=== PATIENT | male | born 1975 | race Caucasian/White ===

== ENCOUNTER 2019-01-26 15:23 | Observation (INO) | payer MEDICAID, SELFPAY ==
[2019-01-26 15:24] VITALS: BP 161/114; PULSE 104; RESP 20; TEMP 36.6; O2SAT 97; BMI 38.2
--- NOTE | 2019-01-26 15:26 | HMH.EDGENADL ---
ED Disposition Clinical Impression: Unstable angina Headache Qualifiers: Headache type: unspecified Headache chronicity pattern: acute headache Intractability: intractable Qualified Code(s): R51 - Headache Disposition: Admitted as Observation Condition on Discharge: Fair - Critical Care Critical Care Time: No Attestation: On , the high probability of a clinically significant, sudden or life threatening deterioration of the following system(s) required my full and direct attention, intervention and personal management. The time I documented below is in addition to time spent performing reported procedures but includes the following listed in this critical care notation. Medical Decision Making - Cesar Inquiry Pt receiving controlled substance: No Vital Signs: 01/26/19 15:24 01/26/19 16:09 01/26/19 16:42 Temperature 98 F Temperature Source Oral Pulse Rate [Right Apical] 104 H 89 97 H Respiratory Rate 20 19 Blood Pressure [Right Arm] 161/114 H 154/95 H 149/104 H Blood Pressure Mean [Right Arm] 129 114 119 Blood Pressure Source [Right Arm] Automatic Cuff Blood Pressure Position [Right Arm] Sitting 02 Sat by Pulse Oximetry 97 95 Oxygen Delivery Method Room Air Room Air - Lab Data Lab Results 01/26/19 15:20: WBC 9.9, RBC 5.59, Hgb 16.2, Hct 48.8, MCV 87.3, MCH 29.0, MCHC 33.2, RDW 13.9, Plt Count 112 L, MPV 10.1, Neut % (Auto) 70.5, Lymph % (Auto) 21.0, [place] % (Auto) 7.1, Eos % (Auto) 1.1, Baso % (Auto) 0.3, Neut # (Auto) 7.0, Lymph # (Auto) 2.1, [place] # (Auto) 0.7, Eos # (Auto) 0.1, Baso # (Auto) 0.0 01/26/19 15:20: Sodium 142, Potassium 3.7, Chloride 107, Carbon Dioxide 27, Anion Gap 11.7, BUN 10, Creatinine 0.81, Estimated Creat Clear 219, Estimated GFR 104, Est GFR ( Amer) 126, Glucose 215 H, Calcium 8.5, Troponin I 0.04 01/26/19 15:20: B-Natriuretic Peptide 310 H 01/26/19 16:38: Urine Color Yellow, Urine Appearance Clear, Urine pH 7.0, Ur Specific [place] 1.015, Urine Protein 1+, Urine Glucose (UA) Trace, Urine Ketones Negative, Urine Blood Negative, Urine Nitrate Negative, Urine Bilirubin Negative, Urine Urobilinogen 0.2, Ur Leukocyte Esterase Negative, Urine RBC None, Urine WBC None, Ur Squamous Epith Cells 3-5, Urine Bacteria Trace Result diagrams: 01/26/19 15:20 01/26/19 15:20 Orders (Tests/Meds): ED MEDICATIONS Discontinued Medications Generic Name Dose Route Start Last Admin Trade Name Raymundoq PRN Reason Stop Dose Admin Metoprolol Tartrate 50 mg 01/26/19 16:03 01/26/19 16:08 Lopressor 50mg Tablet PO 01/26/19 16:04 50 mg ONCE ONE Administration Morphine Sulfate 4 mg 01/26/19 16:48 01/26/19 16:53 Morphine 4mg/Ml Syringe IV 01/26/19 16:49 4 mg ONCE ONE Administration Nitroglycerin 1 gm 01/26/19 16:03 01/26/19 16:08 Nitroglycerin 1 Inch Oint Udp TD 01/26/19 16:04 1 gm ONCE ONE Administration Ondansetron HCl 4 mg 01/26/19 16:48 01/26/19 16:53 Zofran 4mg/2ml Vial IV 01/26/19 16:49 4 mg ONCE ONE Administration ORDERS Category Date Time Status Troponin I Q3H Lab 01/26/19 18:30 Ordered Troponin I Q3H Lab 01/26/19 21:30 Ordered ECG Request by /Minor Stat Y 01/26/19 15:28 Ordered - Radiology Data #1 Image(s): Chest Image Reviewed: Yes I reviewed the patient's radiology image Mild CHF, no significant change from 2017. - CT Data CT Scan: Head Time Received: 17:[address] Reviewed: Yes: I have viewed the radiologist's interpretation Findings Narrative: No acute intracranial process - ECG Data Tracing #1 EKG interpreted by Albino Hdez MD: Rhythm: sinus tachycardia Rate: 106 [place]: normal Ectopy: none Conduction: normal ST Segment Changes: none T Wave Changes: Nonspecific Q Waves: none No evidence of acute ischemia or injury Baseline artifact and wander present, but I consider the EKG adequate for accurate interpretation. - Physician Consults Physician Consulted: Vane Time: 16:00 Lisa
--- NOTE | 2019-01-26 15:32 | XR_ITS ---
XR chest 2V HISTORY: ITS.REASON: CHEST PAIN ORDERING PHYSICIAN: Albino Hdez MD PATIENT AGE: 43 years COMPARISON: 04/26/2017 FINDINGS: There is normal heart size. Pulmonary vessels are however somewhat prominent. There is diffuse prominence of the interstitium consistent with interstitial edema. In addition there is increased density in the right lung base posteriorly consistent with an area of pneumonia or atelectasis. No acute bony findings are evident. IMPRESSION: 1. Normal heart size with pulmonary venous congestion and interstitial edema which may be seen with acute congestive heart failure. 2. Right lower lobe atelectasis or infiltrate
--- NOTE | 2019-01-26 15:39 | PC.NURSE ---
Pt to rad
[2019-01-26 15:40] LABS: Basophils % 0.3 % (0.1-2.0); Eosinophils # 0.1 K/mm3 (0.0-0.4); Eosinophils % 1.1 % (0.1-12.0); Hematocrit 48.8 % (42.0-52.0); Hemoglobin 16.2 g/dL (14.1-18.0); Lymphocytes # 2.1 K/mm3 (0.7-4.5); Mean Corpuscular HGB Conc 33.2 g/dL (31.8-35.4); Mean Corpuscular Volume 87.3 fl (80-94); Mean Platelet Volume 10.1 fl (7.4-10.4); Monocytes # 0.7 K/mm3 (0.1-1.0); Monocytes % 7.1 % (1.7-9.3); Neutrophils % 70.5 % (37.0-80.0); Platelet Count 112 K/mm3 (142-424); Red Blood Count 5.59 M/mm3 (4.60-6.20); Red Cell Distribution Width 13.9 % (11.5-17.5); White Blood Count 9.9 K/mm3 (4.8-10.8)
[2019-01-26 15:54] LABS: Anion Gap 11.7 mEq/L (5-15); Blood Urea Nitrogen 10 mg/dL (7-18); Calcium 8.5 mg/dL (8.5-10.1); Carbon Dioxide 27 mmol/L (21.0-32.0); Chloride 107 mmol/L (98-107); Creatinine Clearance Estimated 219 mL/min (50-200); Creatinine,Serum 0.81 mg/dL (0.70-1.30); Estimated Glomerular Filt Rate 104 ml/min (>60); GFR (African American) 126 ML/MIN (>60); Glucose 215 mg/dL (74-106); Potassium 3.7 mmoL/L (3.5-5.1); Sodium 142 mmol/L (136-145); Troponin I 0.04 ng/ml (0.00-0.06)
--- NOTE | 2019-01-26 15:59 | PC.NURSE ---
ON PHONE WITH DR. ALVAREZ
[2019-01-26 16:09] VITALS: BP 154/95; PULSE 89
--- NOTE | 2019-01-26 16:40 | PC.NURSE ---
Pt up to bathroom, stated had headache from ntg paste, reported it to pt nurse
[2019-01-26 16:42] VITALS: BP 149/104; PULSE 97; RESP 19; O2SAT 95
[2019-01-26 16:43] LABS: Microscopic, Urine URINE MICROSCOPIC (MICROSCOPIC)
--- NOTE | 2019-01-26 16:47 | CT_ITS ---
CT head/brain wo con HISTORY: ITS.REASON: headache ORDERING PHYSICIAN: Albino Hdez MD PATIENT AGE: 43 years COMPARISON: 12/27/2008 TECHNIQUE: Axial images obtained without contrast. Brain and bone windows reviewed. All CT scans at the facility use one or more dose reduction, viz: automated exposure control, ma/kV adjustment per patient size (including targeted exams where dose is matched to indication, i.e. head), or iterative reconstruction technique. FINDINGS: There is mild prominence of the adenoids. No midline shift, mass effect, intracranial hemorrhage or hydrocephalus is evident. There is prominence of the adenoids. There is bilateral opacification of the mastoid air cells. Adnexa phytic soft tissue density projects off the anterior aspect of the scalp on the right. No acute calvarial abnormalities. IMPRESSION: 1. No acute intracranial findings. 2. Bilateral mastoid sinus opacification with prominent adenoids
[2019-01-26 16:52] LABS: Appearance,Urine CLEAR (Clear); Bilirubin,Urine Negative (Negative); Blood, Urine Negative (Negative); Color,Urine YELLOW (Yellow); Glucose,Urine (UA) TRACE (Negative); Ketones,Urine Negative (Negative); Leukocyte Esterase,Urine Negative (Negative); Nitrate,Urine Negative (Negative); Protein,Urine 1+ (Negative); Specific Gravity, Urine 1.015 (1.005-1.030); Urobilinogen,Urine 0.2 EU/dl (0.2)
--- NOTE | 2019-01-26 16:54 | PC.NURSE ---
Paged control electrician for service who is Avelino but Dr. Denise is covering for Dr. You. Per Film Washer she will page Dr. Denise again due to extended time of inital page.
[2019-01-26 16:59] LABS: Bacteria,Urine Trace /lpf
--- NOTE | 2019-01-26 17:06 | PC.NURSE ---
pt return from radiology
--- NOTE | 2019-01-26 17:15 | PC.NURSE ---
johnny speaking with pineda at this time
--- NOTE | 2019-01-26 17:52 | PC.NURSE ---
report given heather maher rn
[2019-01-26 17:58] VITALS: BP 138/92; PULSE 82; RESP 18; TEMP 36.6; O2SAT 93
--- NOTE | 2019-01-26 18:10 | PC.NURSE ---
Pt arrived to floor at this time.
[2019-01-26 18:14] VITALS: BMI 41.5
[2019-01-26 18:15] VITALS: BP 142/93; PULSE 87; RESP 22; TEMP 36.8; O2SAT 94
[2019-01-26 18:52] LABS: Troponin I 0.03 ng/ml (0.00-0.06)
--- NOTE | 2019-01-26 19:08 | PC.NURSE ---
PATIENT SIGNED CONSENT TO LEAVE THE FLOOR, PATIENT LEFT FLOOR, RN CONTACTED MD AT THAT TIME AND MD STATED THAT HE WOULD RATHER HAVE HIM STAY ON THE FLOOR BECAUSE THE TELEMETRY THAT HE IS ON. WHEN PATIENT CAME BACK TO THE FLOOR RN EDUCATED TO THE PATIENT THAT HE CAN NO LONGER LEAVE THE FLOOR, AND THAT WE CAN OFFER HIM A NICOTINE PATCH IF NEEDED, PATIENT VERBALIZED UNDERSTANDING AT THIS TIME, WILL CONTINUE TO MONITOR.
[2019-01-26 20:00] VITALS: BP 141/91; PULSE 90; RESP 16; TEMP 36.8; O2SAT 96
[2019-01-26 22:05] LABS: Troponin I 0.04 ng/ml (0.00-0.06)
[2019-01-27] VITALS (13 sets, daily range): BP systolic 110–137; BP diastolic 73–88; PULSE 65–90; RESP 17–20; TEMP 36.5–37; O2SAT 91–96; BMI 41.8
--- NOTE | 2019-01-27 01:07 | PC.NURSE ---
A&OX3. DENIES CP OR SOA BUT DOES REPORT A SEVERE AMARAL. PT RECEIVED SCHEDULED AND PRN PAIN MEDICATION PER MAR, ON REASSESSMENT PT STATED MY PAIN IS A 3/10 NOW. IT'S SO MUCH BETTER. ESTABLISHED PAIN GOAL IS <6/10 ON 0-10 INFECTIOUS WASTE TECHNICIAN. NICOTINE PATCH WAS APPLIED AND REEDUCATED PT'S NEED TO STAY ON UNIT R/T MD INSTRUCTIONS AND SAFETY. PT AMBULATED IN AVILES X1 THIS SHIFT INDEPENDENTLY AND TOLERATED WELL. LUNG SOUNDS CLEAR PER AUSCULTATION. TOLERATED RA WELL. NSR/SINUS TACH NOTED PER PRINTER SLOTTER HELPER. PULSES +2, CAP REFILL <3 SEC. TRACE EDEMA NOTED TO BLE. BOWEL SOUNDS AUSCULTATED IN ALL QUADS, ABDOMEN NONDISTENDED, SOFT AND NONTENDER PER PALPATION. VSS. WILL CONTINUE TO MONITOR.
[2019-01-27 02:05] LABS: POC Glucose,Bedside 224 (70-110)
--- NOTE | 2019-01-27 04:39 | PC.NURSE ---
No acute changes noted. Pt c/o an headache returning. Tylenol 650 mg administered. Pt has slept well since. No additional complaints. Pt has slept in chair this shift. Declines to sleep in bed. Significant other with pt. Call light within reach. Pt is NPO for cardiac consult this am. No other concerns at this time. Will continue to monitor.
[2019-01-27 06:52] LABS: POC Glucose,Bedside 166 (70-110)
--- NOTE | 2019-01-27 07:28 | P.CONPHA_ITS ---
[facility] Pharmacy VTE Monitoring - Patient Demographics Admission date: 01/26/19 Report Date: 01/27/19 Time: 07:28 Allergies/Adverse Reactions: Patient Allergies No Known Drug Intolerances Allergy (Unknown, Verified 01/26/19 23:06) NA No Known Drug Allergies Allergy (Verified 01/26/19 17:51) Height: 1.85 m Weight: 142.938 kg Patient Problems: Current Active Problems (Updated 01/26/19 @ 17:31 by Albino Hdez MD) Unstable angina (Acute) Headache (Acute) - VTE Risk Labs: VTE Related Lab Results Hgb 16.2 g/dL (14.1-18.0) 01/26/19 15:20 Hct 48.8 % (42.0-52.0) 01/26/19 15:20 Plt Count 112 K/mm3 (142-424) L 01/26/19 15:20 BUN 10 mg/dL (7-18) 01/26/19 15:20 Creatinine 0.81 mg/dL (0.70-1.30) 01/26/19 15:20 Estimated Creat Clear 219 mL/min (50-200) 01/26/19 15:20 Was VTE Risk Assessment Performed: Yes VTE Score: 3 VTE Risk Level: Low Risk Clinical Trial Participant: No - Prophylaxis VTE Prophylaxis Ordered?: Yes Types of VTE Prophylaxis: TEDS Knee High
--- NOTE | 2019-01-27 07:37 | HMH.HP ---
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 He also was apparently very hypertensive. He was admitted overnight and enzymes were negative but family requested evaluation by cardiology, and apparently there was some disagreement between the family and the attending physician and the patient and family left AMA and came to the [facility] emergency department yesterday evening where he was admitted for further evaluation given his ongoing chest pain, symptom complex history and significant risk factors. Overnight he feels fine with no chest pain except for a mild headache. [facility] History I have reviewed the patient's past medical history: Yes Medical History: Reports:: Diabetes Mellitus Type 2, Hyperlipidemia, Hypertension, Myocardial Infarction Denies:: Diabetes Mellitus Type 1 *Have you ever received a pneumonia vaccine?: No *Have you received a flu vaccine this season?: Yes Other Surgeries: Yes: Cardiac Catheterization, Coronary Stent - *Social History Educational Level: Completed High School Smoking Status: Current every day smoker Tobacco Type: cigarettes # Packs/Day (cigarettes): 2 Alcohol Intake: never Substance Use Type: sedatives *Occupational Status:: employed *Travel in the last 8 weeks: None - Psychiatric History Expresses thoughts of harming self/others: None Suicide Plan Description: No Plan Family Hx:: Coronary Artery Disease, Diabetes, Heart Attack, Hyperlipidemia, Hypertension, Kidney Disease Review of Systems - Review of Systems Review of systems:: pertinent systems reviewed and negative unless documented below - Constitutional Denies anorexia, Denies body ache(s) - Eyes Denies blind spots, Denies blurry vision - ENT Denies abnormal hearing - *Cardiovascular Reports chest pain, Reports chest pain at rest, Reports shortness of breath - *Respiratory Denies change in phlegm color, Denies chest congestion - *Gastrointestinal Denies abdominal pain - *Genitourinary Denies difficulty urinating - *Musculoskeletal Denies abnormal walking, Denies joint pain Meds Home Medications Medication Instructions Recorded Confirmed Type Amitriptyline HCl [Elavil 50mg 50 mg PO HS 01/26/19 01/26/19 History tablet] Atorvastatin Calcium [Atorvastatin 40 mg PO HS 01/26/19 01/26/19 History 40mg Tab] Carvedilol [Carvedilol 12.5mg Tab] 12.5 mg PO BID 01/26/19 01/26/19 History Ibuprofen [Ibuprofen 800mg 800 mg PO TID 01/26/19 01/26/19 History Tablet] Insulin Glargine,Hum.rec.anlog 40 unit SQ HS 01/26/19 01/26/19 History [Basaglar Kwikpen U-100] Insulin Lispro [Humalog Kwikpen 60 unit SQ ACHS 01/26/19 01/26/19 History U-100] Lisinopril [Lisinopril 40mg Tablet] 40 mg PO DAILY 01/26/19 01/26/19 History Loratadine [Claritin 10mg Tablet] 10 mg PO DAILY 01/26/19 01/26/19 History Omeprazole [Omeprazole 40mg 40 mg PO DAILY 01/26/19 01/26/19 History Capsule] Potassium Chloride [K-Tab ER 20 20 meq PO BID 01/26/19 01/26/19 History mEq] Prasugrel HCl [Effient 10mg tablet] 10 mg PO DAILY 01/26/19 01/26/19 History Triamterene/Hydrochlorothiazid 2 each PO DAILY 01/26/19 01/26/19 History [Maxzide 37.5 mg-25 mg Tablet] Allergies Allergy/AdvReac Type Severity Reaction Status Date / Time No Known Drug Intolerances Allergy Unknown NA Verified 01/26/19 23:06 No Known Drug Allergies Allergy Verified 01/26/19 17:51 Exam Vital signs and Labs for Last 24 Hours: Temp Pulse Resp BP Pulse Ox 97.9 F 83 18 121/75 92 L 01/27/19 04:00 01/27/19 04:00 01/27/19 04:00 01/27/19 04:00 01/27/19 04:00 Laboratory Results
--- NOTE | 2019-01-27 07:40 | P.HP_ITS ---
*Admission Date: 01/26/19 *Chief complaint: Chest pain/headache *History of present illness: 43-year-old white male, with history of coronary disease, status post stenting a couple of years ago who has been lost to cardiology [id number] been attending a nurse practitioner clinic in [place]-who came to the [facility] early Friday morning, January 25 with a chief complaint of chest pain and headache. He also was apparently very hypertensive. He was admitted overnight and enzymes were negative but family requested evaluation by cardiology, and apparently there was some disagreement between the family and the attending physician and the patient and family left AMA and came to the [facility] emergency department yesterday evening where he was admitted for further evaluation given his ongoing chest pain, symptom complex history and significant risk factors. Overnight he feels fine with no chest pain except for a mild headache. [facility] History I have reviewed the patient's past medical history: Yes Medical History: Reports:: Diabetes Mellitus Type 2, Hyperlipidemia, Hypertension, Myocardial Infarction Denies:: Diabetes Mellitus Type 1 *Have you ever received a pneumonia vaccine?: No *Have you received a flu vaccine this season?: Yes Other Surgeries: Yes: Cardiac Catheterization, Coronary Stent - *Social History Educational Level: Completed High School Smoking Status: Current every day smoker Tobacco Type: cigarettes # Packs/Day (cigarettes): 2 Alcohol Intake: never Substance Use Type: sedatives *Occupational Status:: employed *Travel in the last 8 weeks: None - Psychiatric History Expresses thoughts of harming self/others: None Suicide Plan Description: No Plan Family Hx:: Coronary Artery Disease, Diabetes, Heart Attack, Hyperlipidemia, Hypertension, Kidney Disease Review of Systems - Review of Systems Review of systems:: pertinent systems reviewed and negative unless documented below - Constitutional Denies anorexia, Denies body ache(s) - Eyes Denies blind spots, Denies blurry vision - ENT Denies abnormal hearing - *Cardiovascular Reports chest pain, Reports chest pain at rest, Reports shortness of breath - *Respiratory Denies change in phlegm color, Denies chest congestion - *Gastrointestinal Denies abdominal pain - *Genitourinary Denies difficulty urinating - *Musculoskeletal Denies abnormal walking, Denies joint pain Meds Home Medications Medication Instructions Recorded Confirmed Type Amitriptyline HCl [Elavil 50mg 50 mg PO HS 01/26/19 01/26/19 History tablet] Atorvastatin Calcium [Atorvastatin 40 mg PO HS 01/26/19 01/26/19 History 40mg Tab] Carvedilol [Carvedilol 12.5mg Tab] 12.5 mg PO BID 01/26/19 01/26/19 History Ibuprofen [Ibuprofen 800mg 800 mg PO TID 01/26/19 01/26/19 History Tablet] Insulin Glargine,Hum.rec.anlog 40 unit SQ HS 01/26/19 01/26/19 History [Basaglar Kwikpen U-100] Insulin Lispro [Humalog Kwikpen 60 unit SQ ACHS 01/26/19 01/26/19 History U-100] Lisinopril [Lisinopril 40mg Tablet] 40 mg PO DAILY 01/26/19 01/26/19 History Loratadine [Claritin 10mg Tablet] 10 mg PO DAILY 01/26/19 01/26/19 History Omeprazole [Omeprazole 40mg 40 mg PO DAILY 01/26/19 01/26/19 History Capsule] Potassium Chloride [K-Tab ER 20 20 meq PO BID 01/26/19 01/26/19 History mEq] Prasugrel HCl [Effient 10mg tablet] 10 mg PO DAILY 01/26/19 01/26/19 Histor
--- NOTE | 2019-01-27 09:30 | CA_ITS ---
PROCEDURE: 2-D M-mode and color Doppler study INDICATIONS FOR THE TEST: Chest pain X COPD Heart Murmur Tobacco SmokingX Palpitations Fatigue Syncope Edema HypertensionXDiabetes MellitusX Rheumatic Fever SOBXDOE ObesityXHyperlipidemia Family History HD Additional History CAD,STENTS PATIENT INFORMATION HEIGHT: 73 WEIGHT:315 GENDER: Male B/P:119/73 2-D/M-MODE INTERPRETATION: 2-D MEASUREMENTS OBSERVED VALUES IN CMS Right Ventricular Dimension (RVDd) 2.7 Interventricular Septum (Thickness)(IVsd) 1.2 Left Ventricular Internal Dimensions(LVIDd) 5.6 Left Ventricular Posterior Wall (Thickness)(LVPWd) 1.1 Aortic Root 3.8 Aortic Cusp Separation 1.8 Left Atrial Dimensions (LAD) 4.0 2D 1. Left atrium is mildly enlarged, left ventricle is normal size, mild concentric left ventricular hypertrophy, visually estimated ejection fraction of 55% with no obvious regional wall motion abnormality, endocardial surfaces are poorly visualized. 2. The right atrium and right ventricle are normal size and contractility. 3. The aortic valve is minimally thickened and fibrosed. 4. The mitral and tricuspid valvular grossly normal. 5. The pulmonic valve is poorly present. 6. No significant pericardial effusion noted. DOPPLER INTERROGATION: Doppler interrogation of the aortic, mitral and tricuspid valvular presence of mild mitral and tricuspid regurgitation, tricuspid regurgitation jet velocity is inadequate for calculation of the right ventricular systolic pressure, diastolic parameters are within normal range. CONCLUSION: 1. Technically difficult study because of the patient's factor and poor acoustic windows 2. Mildly enlarged left atrium, normal left ventricular size, mild concentric left ventricular hypertrophy, visually estimated ejection fraction 55% with no regional wall motion abnormality, diastolic parameters are within normal range. 3. Mild mitral and tricuspid regurgitation 4. No significant pericardial effusion noted.
--- NOTE | 2019-01-27 09:30 | HMH.CNCARD ---
History of Present Illness Consult date: 01/27/19 Requesting physician: Philip Denise Consult reason: chest pain Chief complaint: Chest pain Additional Medical History:: 1. Coronary artery disease 2. Hypertension 3. Hyperlipidemia 4. Diabetes mellitus 5. Tobacco user 6. History of stented coronary arteries History of present illness: This is a 43-year-old white gentleman who has been admitted for chest pain and angina. The patient states that he started having chest pain on Friday. He describes this as a pressure, heavy sensation in the center of his chest. He states it radiates up the left side of his neck and down his left arm. He states that the chest pain and pressure is associated with shortness of breath, clamminess and diaphoresis. He rates the pain a 7.5 out of 10 in intensity. He states that this occurs with rest and exertion. It is worse with exertion and nothing really helped to improve his symptoms at home. He states that his blood pressure also started to elevate when he started getting chest pain. His blood pressure was as high as 230/100 at home. The patient initially went to [facility]. He states that at [facility] they were not doing anything to help improve his pain and they refused to transfer him here to [facility] to see his slasher tender helper so he decided to leave [facility]. He presented here to [facility] on Friday for worsening of his angina. He states that he is continued to have angina off and on throughout the night but after getting Nitropaste he states that his symptoms have improved. He states that his angina is now mild and he is not having any angina symptoms this morning. He does have known coronary artery disease with stenting in 2017. The patient did have persistent disease at that time. He does continue to smoke 1 pack/day and he is diabetic. He denies any fevers, chills, nausea, vomiting, diarrhea, PND or orthopnea. [facility] History I have reviewed the patient's past medical history: Yes Medical History: Reports:: Coronary Artery Disease, Diabetes Mellitus Type 2, Hyperlipidemia, Hypertension, Myocardial Infarction Denies:: Diabetes Mellitus Type 1 *Have you ever received a pneumonia vaccine?: No *Have you received a flu vaccine this season?: Yes Other Surgeries: Yes: Cardiac Catheterization, Coronary Stent - *Social History Educational Level: Completed High School Smoking Status: Current every day smoker Tobacco Type: cigarettes # Packs/Day (cigarettes): 1 Alcohol Intake: never Substance Use Type: sedatives *Occupational Status:: employed *Travel in the last 8 weeks: None - Psychiatric History Expresses thoughts of harming self/others: None Suicide Plan Description: No Plan Family Hx:: Coronary Artery Disease, Diabetes, Heart Attack, Hyperlipidemia, Hypertension, Kidney Disease Meds Home Medications Medication Instructions Recorded Confirmed Type Amitriptyline HCl [Elavil 50mg 50 mg PO HS 01/26/19 01/26/19 History tablet] Atorvastatin Calcium [Atorvastatin 40 mg PO HS 01/26/19 01/26/19 History 40mg Tab] Carvedilol [Carvedilol 12.5mg Tab] 12.5 mg PO BID 01/26/19 01/26/19 History Ibuprofen [Ibuprofen 800mg 800 mg PO TID 01/26/19 01/26/19 History Tablet] Insulin Glargine,Hum.rec.anlog 40 unit SQ HS 01/26/19 01/26/19 History [Basaglar Kwikpen U-100] Insulin Lispro [Humalog Kwikpen 60 unit SQ ACHS 01/26/19 01/26/19 History U-100] Lisinopril [Lisinopril 40mg Tablet] 40 mg PO DAILY 01/26/19 01/26/19 History Loratadine [Claritin 10mg Tablet] 10 mg PO DAILY 01/26/19 01/26/19 History Omeprazole [Omeprazole 40mg 40 mg PO DAILY 01/26/19 01/26/19 History Capsule] Potassium Chloride [K-Tab ER 20 20 meq PO BID 01/26/19 01/26/19 History mEq] Prasugrel HCl [Effient 10mg tablet] 10 mg PO DAILY 01/26/19 01/26/19 History Triamterene/Hydrochlorothiazid 2 each PO DAILY 01/26/19 01/26/19 History [Maxzide 37.5 mg-25
--- NOTE | 2019-01-27 09:33 | P.CONS_ITS ---
History of Present Illness Consult date: 01/27/19 Requesting physician: Philip Denise Consult reason: chest pain Chief complaint: Chest pain Additional Medical History:: 1. Coronary artery disease 2. Hypertension 3. Hyperlipidemia 4. Diabetes mellitus 5. Tobacco user 6. History of stented coronary arteries History of present illness: This is a 43-year-old white gentleman who has been admitted for chest pain and angina. The patient states that he started having chest pain on Friday. He describes this as a pressure, heavy sensation in the center of his chest. He states it radiates up the left side of his neck and down his left arm. He states that the chest pain and pressure is associated with shortness of breath, clamminess and diaphoresis. He rates the pain a 7.5 out of 10 in intensity. He states that this occurs with rest and exertion. It is worse with exertion and nothing really helped to improve his symptoms at home. He states that his blood pressure also started to elevate when he started getting chest pain. His blood pressure was as high as 230/100 at home. The patient initially went to [facility]. He states that at [facility] they were not doing anything to help improve his pain and they refused to transfer him here to [facility] to see his soaping machine back tender so he decided to leave [facility]. He presented here to [facility] on Friday for worsening of his angina. He states that he is continued to have angina off and on throughout the night but after getting Nitropaste he states that his symptoms have improved. He states that his angina is now mild and he is not having any angina symptoms this morning. He does have known coronary artery disease with stenting in 2017. The patient did have persistent disease at that time. He does continue to smoke 1 pack/day and he is diabetic. He denies any fevers, chills, nausea, vomiting, diarrhea, PND or orthopnea. [facility] History I have reviewed the patient's past medical history: Yes Medical History: Reports:: Coronary Artery Disease, Diabetes Mellitus Type 2, Hyperlipidemia, Hypertension, Myocardial Infarction Denies:: Diabetes Mellitus Type 1 *Have you ever received a pneumonia vaccine?: No *Have you received a flu vaccine this season?: Yes Other Surgeries: Yes: Cardiac Catheterization, Coronary Stent - *Social History Educational Level: Completed High School Smoking Status: Current every day smoker Tobacco Type: cigarettes # Packs/Day (cigarettes): 1 Alcohol Intake: never Substance Use Type: sedatives *Occupational Status:: employed *Travel in the last 8 weeks: None - Psychiatric History Expresses thoughts of harming self/others: None Suicide Plan Description: No Plan Family Hx:: Coronary Artery Disease, Diabetes, Heart Attack, Hyperlipidemia, Hypertension, Kidney Disease Meds Home Medications Medication Instructions Recorded Confirmed Type Amitriptyline HCl [Elavil 50mg 50 mg PO HS 01/26/19 01/26/19 History tablet] Atorvastatin Calcium [Atorvastatin 40 mg PO HS 01/26/19 01/26/19 History 40mg Tab] Carvedilol [Carvedilol 12.5mg Tab] 12.5 mg PO BID 01/26/19 01/26/19 History Ibuprofen [Ibuprofen 800mg 800 mg PO TID 01/26/19 01/26/19 History Tablet] Insulin Glargine,Hum.rec.anlog 40 unit SQ HS 01/26/19 01/26/19 History [Basaglar Kwikpen U-100] Insulin Lispro [Humalog Kwikpen 60 unit SQ [facility] 01/26/19 01/26/19 History U-100] Lisinopril [Lisinopril 40mg Tablet] 40 mg PO DAILY 01/26/19 01/26/19 His
--- NOTE | 2019-01-27 09:48 | PC.NURSE ---
Pt out of room and states he is going downstairs to smoke, informed pt that he needs to stay on floor to be monitored by telemetry and nursing staff. Pt left floor when this nurse in another room.
--- NOTE | 2019-01-27 10:47 | HMH.PHAINT ---
COMPLETED HOME MEDICATION RECONCILIATION USING LIST FROM [facility] OFFICE AND INTERVIEWING PATIENT.
--- NOTE | 2019-01-27 11:18 | IR_ITS ---
CARDIAC CATHETERIZATION DATE OF CATHETERIZATION:01/27/2019 11:51 AM PROCEDURES: 1. Left heart catheterization 2. Left ventriculogram 3. Selective coronary angiogram INDICATION FOR TEST: 1. Known coronary artery disease 2. Unstable angina Informed consent was obtained prior to the procedure. COMPLICATIONS: None ESTIMATED BLOOD LOSS: Less than 10 ml. TECHNIQUE: One percent lidocaine was used to anesthetize the right groin. The right femoral artery was accessed via the Seldinger technique. A 4-Faroese sheath was placed in the right femoral artery. The JL-4 and JR-4 catheter was also used to perform left heart catheterization left ventriculogram and selective coronary angiogram. At the end of the procedure the patient was transferred to the post-op holding area in stable condition for arterial sheath removal. ANGIOGRAPHIC RESULTS: 1. The left main artery normal 2. The left anterior descending artery appears to have a stent in the proximal segment which is widely patent with very minimal in-stent restenosis nothing greater than 20%. It transitions nicely into the mid LAD which also has mid vessel 20% stenoses 3. The circumflex artery is a dominant vessel and has a stent in the mid segment which is widely patent free of in-stent restenosis. The terminal obtuse marginal artery has sequential 30% stenoses 4. The right coronary artery is a small nondominant vessel has proximal 30% stenosis mid vessel 70% stenosis and a distal 80-90% stenosis proximal to an area supplying a small amount of mostly right ventricle 5. The LORENZO ventriculogram reveals left ventricular dilatation with ejection fraction of 45% 6. The left ventricular end-diastolic pressure severely elevated at 45 mmHg IMPRESSION: 1. Widely patent stents as described above 2. Severe stenosis and a small nondominant right coronary artery 3. Left ventricular dilatation with reduced ejection fraction and severely elevated LVEDP PLAN: 1. Medical management for coronary disease 2. Patient needs significant diuresis in order to decrease EDP which will subsequently significantly improve angina pectoris 3. Aggressive risk factor modification
--- NOTE | 2019-01-27 14:05 | HMH.DCSUM ---
General - General Admission date:: 01/26/19 Discharge date: 01/27/19 HPI HPI: 43-year-old white male, with history of coronary disease, status post stenting a couple of years ago who has been lost to cardiology [id number] [place] came to the [facility] early Friday morning, January 25 with a chief complaint of chest pain and headache. He also was apparently very hypertensive. He was admitted overnight and enzymes were negative but family requested evaluation by cardiology, and apparently there was some disagreement between the family and the attending physician and the patient and family left AMA and came to the [facility] emergency department yesterday evening where he was admitted for further evaluation given his ongoing chest pain, symptom complex history and significant risk factors. Overnight he feels fine with no chest pain except for a mild headache. Hospital Course Hospital Course: Patient was admitted, blood pressure improved, chest pain resolved with nitroglycerin but patient did have a mild headache. This morning he was taken to catheterization suite and left heart catheterization was performed, and following results were obtained: ANGIOGRAPHIC RESULTS: 1. The left main artery normal 2. The left anterior descending artery appears to have a stent in the proximal segment which is widely patent with very minimal in-stent restenosis nothing greater than 20%. It transitions nicely into the mid LAD which also has mid vessel 20% stenoses 3. The circumflex artery is a dominant vessel and has a stent in the mid segment which is widely patent free of in-stent restenosis. The terminal obtuse marginal artery has sequential 30% stenoses 4. The right coronary artery is a small nondominant vessel has proximal 30% stenosis mid vessel 70% stenosis and a distal 80-90% stenosis proximal to an area supplying a small amount of mostly right ventricle 5. The LORENZO ventriculogram reveals left ventricular dilatation with ejection fraction of 45% 6. The left ventricular end-diastolic pressure severely elevated at 45 mmHg IMPRESSION: 1. Widely patent stents as described above 2. Severe stenosis and a small nondominant right coronary artery 3. Left ventricular dilatation with reduced ejection fraction and severely elevated LVEDP PLAN: 1. Medical management for coronary disease 2. Patient needs significant diuresis in order to decrease EDP which will subsequently significantly improve angina pectoris 3. Aggressive risk factor modification The patient did well after the procedure and I examined him and talked with him and his in detail about the findings as above. Plan will be to discharge patient home, short-term follow-up in our office, I will institute Lasix therapy, also, since he is over 1 year after coronary event we will institute low-dose Xarelto. He will continue statin therapy. Of note he recently acquired a CPAP machine and I encouraged him to begin using this to help with his obesity and hypertension and fluid retention. Also of note, carvedilol as an outpatient did not seem to do good job with his blood pressure. Metoprolol tartrate 50 mg twice daily did a good job in the hospital and we will be changing to this medication. Prescription sent to local pharmacy for the metoprolol, and the newly instituted Lasix and Xarelto. His medication list records that he is on Effient therapy. He has been on this for over a year and this can be discontinued on this and low-dose Xarelto may be started. Objective Vital signs: Temp Pulse Resp BP Pulse Ox 98.0 F 72 20 113/76 94 L 01/27/19 13:35 01/27/19 13:35 01/27/19 13:35 01/27/19 13:35 01/27/19 13:35 Narrative: Please see dictation from this morning. Patient's attempted radial cath site and legs look good after right groin catheterization. Otherwise unchanged exam. Results L
--- NOTE | 2019-01-27 14:08 | P.DS_ITS ---
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 He also was apparently very hypertensive. He was admitted overnight and enzymes were negative but family requested evaluation by cardiology, and apparently there was some disagreement between the family and the attending physician and the patient and family left AMA and came to the [facility] emergency department yesterday evening where he was admitted for further evaluation given his ongoing chest pain, symptom complex history and significant risk factors. Overnight he feels fine with no chest pain except for a mild headache. Hospital Course Hospital Course: Patient was admitted, blood pressure improved, chest pain resolved with nitroglycerin but patient did have a mild headache. This morning he was taken to catheterization suite and left heart catheterization was performed, and following results were obtained: ANGIOGRAPHIC RESULTS: 1. The left main artery normal 2. The left anterior descending artery appears to have a stent in the proximal segment which is widely patent with very minimal in-stent restenosis nothing greater than 20%. It transitions nicely into the mid LAD which also has mid vessel 20% stenoses 3. The circumflex artery is a dominant vessel and has a stent in the mid segment which is widely patent free of in-stent restenosis. The terminal obtuse marginal artery has sequential 30% stenoses 4. The right coronary artery is a small nondominant vessel has proximal 30% stenosis mid vessel 70% stenosis and a distal 80-90% stenosis proximal to an area supplying a small amount of mostly right ventricle 5. The LORENZO ventriculogram reveals left ventricular dilatation with ejection fraction of 45% 6. The left ventricular end-diastolic pressure severely elevated at 45 mmHg IMPRESSION: 1. Widely patent stents as described above 2. Severe stenosis and a small nondominant right coronary artery 3. Left ventricular dilatation with reduced ejection fraction and severely elevated LVEDP PLAN: 1. Medical management for coronary disease 2. Patient needs significant diuresis in order to decrease EDP which will subsequently significantly improve angina pectoris 3. Aggressive risk factor modification The patient did well after the procedure and I examined him and talked with him and his in detail about the findings as above. Plan will be to discharge patient home, short-term follow-up in our office, I will institute Lasix therapy, also, since he is over 1 year after coronary event we will institute low-dose Xarelto. He will continue statin therapy. Of note he recently acquired a CPAP machine and I encouraged him to begin using this to help with his obesity and hypertension and fluid retention. Also of note, carvedilol as an outpatient did not seem to do good job with his blood pressure. Metoprolol tartrate 50 mg twice daily did a good job in the hospital and we will be changing to this medication. Prescription sent to local pharmacy for the metoprolol, and the newly instituted Lasix and Xarelto. His medication list records that he is on Effient therapy. He has been on this for over a year and this can be discontinued on this and low-dose Xarelto may be started. Objective Vital signs:
--- NOTE | 2019-01-27 15:18 | PC.NURSE ---
Dressing to right wrist and right groin site dry and intact, instructed that dressing can be removed in 24 hours. Pt verbalized understanding.
--- NOTE | 2019-01-27 16:17 | HMH.PHAINT ---
DISCHARGE COUNSELING PROVIDED TO PATIENT FOR ALL MEDICATIONS. PATIENT VERBALIZED UNDERSTANDING AND DID NOT HAVE ANY QUESTIONS.
== END 2019-01-27 15:20 | disposition home or self-care (01) ==
LOC: ER 17:30 → 2ND 17:31
PROVIDERS: Internal Medicine; Admitting Provider Internal Medicine Adolescent Medicine; Emergency Provider Emergency Medicine; PCP Nurse Practitioner Family; Visit Provider Internal Medicine Adolescent Medicine
DX: I25.110 Atherosclerotic heart disease of native coronary artery with unstable angina pectoris (principal); Z95.5 Presence of coronary angioplasty implant and graft; I11.9 Hypertensive heart disease without heart failure; E78.5 Hyperlipidemia, unspecified; I25.2 Old myocardial infarction; Z79.899 Other long term (current) drug therapy; Z72.0 Tobacco use; Z68.41 Body mass index [BMI] 40.0-44.9, adult; E66.09 Other obesity due to excess calories
CPT/HCPCS: 36415; 70450; 71046; 80048; 81001; 82962; 83880; 84484; 85025; 93005; 93306; 93458; 96374; 96375; 99152; 99284; C1725; C1769; G0378; J1644; J2405; Q9967

== ENCOUNTER → 2019-03-24 09:00 | Outpatient (CLI) | payer MEDICAID, SELFPAY ==
[2019-03-24 13:53] LABS: Basophils # 0.1 K/mm3 (0-0.2); Eosinophils # 0.2 K/mm3 (0.0-0.4); Lymphocytes # 2.3 K/mm3 (0.7-4.5); Monocytes # 0.6 K/mm3 (0.1-1.0)
[2019-03-24 14:07] LABS: Basophils % 0.6 % (0.1-2.0); Eosinophils % 1.4 % (0.1-12.0); Hematocrit 53.5 % (42.0-52.0); Lymphocytes % 20.9 % (10-50); Mean Corpuscular HGB Conc 34.2 g/dL (31.8-35.4); Mean Corpuscular Hemoglobin 31.2 pg (27.0-31.2); Mean Corpuscular Volume 91.3 fl (80-94); Mean Platelet Volume 11.6 fl (7.4-10.4); Monocytes % 5.2 % (1.7-9.3); Neutrophils # 7.7 K/mm3 (1.8-7.8); Platelet Count 131 K/mm3 (142-424); Red Blood Count 5.86 M/mm3 (4.60-6.20); Red Cell Distribution Width 13.9 % (11.5-17.5); White Blood Count 10.7 K/mm3 (4.8-10.8)
[2019-03-24 14:18] LABS: Hemoglobin A1C 9.6 % (0.0-7.0)
[2019-03-24 14:44] LABS: Alanine Aminotransferase 66 U/L (12-78); Albumin Level 3.9 gm/dL (3.4-5.0); Albumin/Globulin Ratio 1.1 (1.1-1.8); Alkaline Phosphatase 82 U/L (46-116); Anion Gap 15.1 mEq/L (5-15); Aspartate Amino Transferase 30 U/L (15-37); Bilirubin,Total 0.6 mg/dL (0.2-1.0); Blood Urea Nitrogen 16 mg/dL (7-18); Calcium 9.2 mg/dL (8.5-10.1); Carbon Dioxide 27 mmol/L (21.0-32.0); Chloride 94 mmol/L (98-107); Chol/HDL Ratio 8.3 (1-3.5); Cholesterol 217 mg/dL (140-200); Creatinine,Serum 1.16 mg/dL (0.70-1.30); Estimated Glomerular Filt Rate 69 ml/min (>60); GFR (African American) 83 ML/MIN (>60); Globulin 3.6 gm/dl (1.3-3.2); HDL Cholesterol 26 mg/dL (27-67); Hemoglobin 18.3 g/dL (14.1-18.0); Magnesium 1.5 mg/dL (1.4-2.2); Potassium 4.1 mmoL/L (3.5-5.1); Sodium 132 mmol/L (136-145); Total Protein,Serum 7.5 gm/dL (6.4-8.2)
[2019-03-24 14:54] LABS: Triglycerides 848 mg/dL (30-200)
[2019-03-24 14:55] LABS: Glucose 440 mg/dL (74-106)
== END ==
PROVIDERS: PCP Nurse Practitioner Family; Visit Provider Nurse Practitioner Family
DX: E11.49 Type 2 diabetes mellitus with other diabetic neurological complication (principal); J40 Bronchitis, not specified as acute or chronic; R25.2 Cramp and spasm; E78.2 Mixed hyperlipidemia
CPT/HCPCS: 36415; 80053; 80061; 83036; 83735; 85025

== ENCOUNTER 2025-02-16 05:53 | Observation (INO) | payer MEDICAID, SELFPAY ==
--- OUTSIDE RECORDS SUMMARY | 2025-02-12 23:59 | XMS_ITS | Encounter Summary ---
Author Organization [facility] Address [address] [place] [address] Care Team Providers Care Delivery Lead Name Role Phone Zeynep Peraza APRN Primary Care Provider [phone] Encounter Details Date Type Department Care Team (Late st Contact Info) Description 02/15/2025 11:59 PM EDT Anesthesia Event [facility] [address] [place] [address] Christian Bonilla MD [address] [place] [address] Anesthesia Record Procedure Summary Procedure Name Responsible Anesthesiologist Anesthesia Start Time Anesthesia Stop Time COL&EGD Events No events on file. Meds * Agents No agents on file. * Blood No blood administrations on file. Lines, Drains, and Airways No LDAs on file. documented in this encounter Social History Tobacco Use Types Packs/Day Years Used Date Smoking Tobacco: Every Day Passive Smoke Exposure: Current Smokeless Tobacco: Never Alcohol Use Standard Drinks/Week Comments Never 0 (1 standard drink = 0.6 oz pur e alcohol) Humiliation, Afraid, Rape, and Kick questionnair e Answer Date Recorded Within the last year, have y ou been afraid of your partner or ex-partner? No 07/01/2024 Within the last year, have y ou been humiliated or emotionally abused in other ways by your partner or ex-partner? No Within the last year, have y ou been kicked, hit, slapped, or otherwise physically hurt by your partner or ex-partner? No 07/01/2024 Within the last year, have y ou been raped or forced to have any kind of sexual activity by your partner or ex-partner? No 07/01/2024 PHQ-2 Answer Date Recorded Patient Health Questionnaire-2 Score 0 11/29/2024 Hunger Vital Sign Answer Date Recorded Within the past 12 months, y ou worried that your food would run out before you got the money to buy more. Never true 07/01/20 24 Within the past 12 months, t he food you bought just didn't last and you didn't have money to get more. Never true 07/01/2024 PRAPARE - Transportation Answer Date Re corded In the past 12 months, has l ack of transportation kept you from medical appointments or from getting medications? No 06/18 In the past 12 months, has l ack of transportation kept you from meetings, work, or from getting things needed for daily living? No 07/01/2024 Housing Stability Vital Sign Answer Sathya e Recorded In the last 12 months, was t here a time when you were not able to pay the mortgage or rent on time? No 07/01/2024 Number of Times Moved in the Last Year Not on fi le 07/01/2024 At any time in the past 12 m [facility], were you homeless or living in a correction (including now)? No 07/01/2024 CAGE ASSESSMENT Answer Date Recorded Cage unable to access Not on file 07/01/2024 Cage max number of drinks Not on file 2023 Cage Beverages a week Not on file 07/01/2024 Have you ever felt you should CUT down on your d rinking? 0 07/01/2024 Have you been ANNOYED by people criticizing your drinking? 0 07/01/2024 Have you felt GUILTY about your drinking? 0 07/01/2024 Have you had a drink first t artie in the morning ([employer]) to steady your nerves or to get rid of a hangover? 0 07/01/2024 CAGE Questionnaire Score 0 024 Utilities Answer Date Recorded In the past 12 months has th e electric, gas, oil, or water company threatened to shut off services in your home? No 07/01/2024 Sex and Gender Information Value Date Recorded Sex Assigned at Not on file Legal Sex Male 7:28 PM EDT Gender Identity Not on file Sexual Orientation Not on file documented as of this encounter Plan of Treatment Not on file documented as of this encounter Visit Diagnoses Not on filedocumented in this encounter Additional Health Concerns Assessment Noted Time A fall risk assessment has been complete d for the patient 11/29/2024 1:17 PM EDT A Body Mass Index follow-up plan has been documented for the patient 11/29/2024 6:43 PM EDT documented as of this encounter Care Teams Delivery Lead Relationship Specialty Start Date End Date Zeynep Peraza APRN [address] [place] [address] PCP - General 11/29/24 documented as of this encounter
[2025-02-16] VITALS (35 sets, daily range): BP systolic 123–171; BP diastolic 79–118; PULSE 100–125; RESP 13–20; TEMP 36.4–37.2; O2SAT 95–98; BMI 28.8
--- NOTE | 2025-02-16 06:01 | XR_ITS ---
FINAL REPORT CLINICAL HISTORY: hyperglycemia suspect DKA FINDINGS: SINGLE VIEW CHEST The heart is normal in size. The mediastinum is unremarkable. The lungs are clear. There is no pneumothorax. IMPRESSION: No acute process. Reviewed, Interpreted and Dictated by Zia Eldridge MD Transcribed by Juli Bee Authenticated and [facility]
--- NOTE | 2025-02-16 06:01 | CT_ITS ---
FINAL REPORT TECHNIQUE: Axial CT images were performed through the head. Coronal reformatted images were submitted. This study was performed with techniques to keep radiation doses as low as reasonably achievable (ALARA). Individualized dose reduction techniques using automated exposure control or adjustment of mA and/or kV according to the patient's size were employed. CLINICAL HISTORY: blurry vision hyperglycemia FINDINGS: The ventricles are normal in size. There is no evidence of hemorrhage. There is no mass or edema identified. There is no abnormal extra-axial fluid seen. There is a 12 mm density in the right frontal scalp, probably due to a partially calcified sebaceous cyst. There is partial opacification of the bilateral mastoid air cells consistent with chronic mastoiditis. IMPRESSION: No acute intracranial process. Reviewed, Interpreted and Dictated by Zia Eldridge MD Transcribed by Juli Bee Authenticated and [facility]
--- NOTE | 2025-02-16 06:01 | CT_ITS ---
FINAL REPORT TECHNIQUE: thin section axial CT with and without IV contrast supplemented with multiplanar 3-D reconstruction of the head. This study was performed with techniques to keep radiation doses as low as reasonably achievable, (ALARA)individualized dose reduction techniques using automated exposure control or adjustment of mA and/or kV according to the patient's size were employed. CLINICAL HISTORY: hyperglycemia vision changes FINDINGS: The cranial circulation is unremarkable. There is no significant stenosis, aneurysm or occlusion. IMPRESSION: No acute process. Reviewed, Interpreted and Dictated by Zia Eldridge MD Transcribed by Juli Bee Authenticated and [facility]
--- NOTE | 2025-02-16 06:01 | CT_ITS ---
FINAL REPORT TECHNIQUE: NASCET technique utilized for stenosis evaluation. This study was performed with techniques to keep radiation doses as low as reasonably achievable, (ALARA). Individualized dose reduction techniques using automated exposure control or adjustment of mA and/or kV according to the patient's size were employed. CLINICAL HISTORY: hyperglycemia vision changes FINDINGS: RIGHT CAROTID: There is minimal vascular calcification of the proximal ICA without significant stenosis. LEFT CAROTID: There is minimal vascular calcification of the proximal ICA without significant stenosis. VERTEBRALS: The vertebrals are patent and codominant. No significant stenosis is present. IMPRESSION: No significant arterial abnormality. Reviewed, Interpreted and Dictated by Zia Eldridge MD Transcribed by Juli Bee Authenticated and . [facility]
--- NOTE | 2025-02-16 06:01 | PC.NURSE ---
attempted a glucose check on this pt. glucometer said High
--- NOTE | 2025-02-16 06:05 | PC.NURSE ---
glucose reading high sent to lab for confirmation.
--- OUTSIDE RECORDS SUMMARY | 2025-02-16 06:07 | XMS_ITS | Data Portability ---
Author Organization [facility] ADMIN Address [address] [place] [id number] Assessment No assessment recorded. Plan of Treatment Reminders Order Date Submit Date Provider Last Modified By Organization Details Last Modified Time Details Appointments None record ed. Lab None record ed. Referral None record ed. Procedures None record ed. Surgeries None record ed. Imaging None record ed. Medication Orders None record ed. Patient TargetsNo targets recorded. Patient InstructionsNo instructions recorded. Reason for Referral None Reported. Results Created Date Observation Date Name Description Value Unit Range Abnormal Flag Note LastModifiedBy Organization Detail LastModifiedTime 04/09/2004/09/2023 GLUCO SE POINT OF CARE note See Note Order ing Provi jerardo: Ariella Hand MD Not Available [place] [address], [place], [address], 04/09/2023 19:51:21 04/09/20 23 04/09/2023 GLUCO SE POINT OF CARE glucose point of care 391 mg/dL 70-99 high Not Available [place] [address] [place], [address], 04/09/2023 19:51:21 04/09/20 23 04/09/2023 GLUCO SE POINT OF CARE performing lab see note PO - [address] [facility] [address] Not Available [place] [address] [place], [address], 04/09/2023 19:51:21 04/10/20 23 04/10/2023 GLUCO SE POINT OF CARE note See Note Order ing Provi jerardo: Ariella Hand MD Not Available [address] , [place], [address], 04/10/2023 12:39:55 04/10/20 23 04/10/2023 GLUCO SE POINT OF CARE glucose point of care 465 mg/dL 70-99 high Not Available [address] , [place], [address], 04/10/2023 12:39:55 04/10/20 23 04/10/2023 GLUCO SE POINT OF CARE performing lab see note [facility] [address] [place] [address] [place] [address] Not Available [address] , [place], [address], 04/10/2023 12:39:55 Result Notes None recorded. Procedures Surgical History Date Name Laterality Status Provider Name and Address Organization Details Recorded Time 08/18/19 21 Cardiovascular Surgery completed Elizabeth RAMIREZ [facility] [place] 04/23/2023 08:15:58 08/18/19 20 Prostate Surgery completed Elizabeth RAMIREZ [facility] [place] 04/23/2023 08:15:58 Imaging Results None recorded. Procedure Notes None recorded. Medical Equipment None Reported. Allergies Allergen ID Allergen Name Allergen Category Reaction Reaction Severity Criticality Documentation Date Start Date Code Code System Note Provider Name and Address Organization Details Recorded Time 47299 metformin medicatio n nausea moderate Not available 04/23/2023 6809 RxNorm FLORINA Mckenzie [facility] [place] 08:15:45 Medications Name Sig Start Date Stop Date Status Note LastModified by Organization Details LastModified Time atorvastatin 80 mg tablet active Not Available Not Available Not Available metoprolol succinate ER 50 mg tablet,exten ded release 24 hr TAKE 1 TABLET BY MOUTH ONCE DAILY active Not Available Not Available No t Available hydrocodone 5 mg-acetamino phen 325 mg tablet TAKE 1 TABLET BY MOUTH EVERY 6 HOURS NEEDED FOR PAIN active Not Available Not Available No t Available amlodipine 5 mg tablet active Not Available Not Available No t Available omeprazole 40 mg capsule,segundo yed release active Not Available Not Available Not Available aspirin 81 mg tablet,delay ed release active Not Available Not Available N ot Available oxycodone-ac etaminophen 5 mg-325 mg tablet TAKE 1 TABLET BY MOUTH EVERY 4 HOURS NEEDED FOR PAIN active Not Available Not Available No t Available linezolid 600 mg tablet TAKE 1 TABLET BY MOUTH TWICE DAILY active Not Available Not Available No t Available cephalexin 500 mg capsule TAKE 1 CAPSULE BY MOUTH EVERY 8 HOURS FOR 10 DAYS active Not Available Not Available No t Available lisinopril 10 mg tablet TAKE 1 TABLET BY MOUTH ONCE DAILY active Not Available Not Available No t Available furosemide 20 mg tablet 04/09 completed Not Available Not Available Not Available ergocalcifer ol (vitamin D2) 1,250 mcg (50,000 unit) capsule active Not Available Not Available Not Available lisinopril 40 mg tablet active Not Available Not Available Not Available doxycycline hyclate 100 mg tablet TAKE 1 TABLET BY MOUTH EVERY 12 HOURS active Not Available Not Available No t Available buprenorphin e 8 mg-naloxone 2 mg sublingual tablet active Not Available Not Available Not Available BD Ultra-Fine Original Pen Needle 29 gauge x 1/2 active Not Available Not Available Not Available hydrochlorot hiazide 12.5 mg tablet active Not Available Not Available No t Available Lantus Solostar U-100 Insulin 100 unit/mL (3 mL) subcutaneous pen active Not Available Not Available Not Available Ozempic 1 mg/dose (4 mg/3 mL) subcutaneous pen injector active Not Available Not Available Not Available Vitals Date Recorded Body height Body mass index (BMI) Body weight Heart rate Body temperature Systolic blood pressure Diastolic blood pressure Provider Name and Address Organization Details Last Updated DateTime 3 187.96 cm 31.5 kg/m2 180885. 13 g 80 /min 96.3 [degF] 151 mm[Hg] 93 mm[Hg] Elizabeth RAMIREZ [facility] [place] 15:24:07 Social History Question Answer Notes LastModified by Organizat ion Details LastModified Time Tobacco Smoking Status Current Every Day Smoker Elizabeth chau, FLORINA RAMIREZ [facility] [place] 04/09/2023 15:32:28 Do You Have An Advance Directive? No [email or web address] Information not available 04/23/2023 Are You Blind Or Do You Have Difficulty Seeing? No Information not available 04/23/2023 What Is Your Level Of Caffeine Consumption? Occasional [email or web address] Information not available 04/23/2023 Are You Passively Exposed To Smoke? Yes [email or web address] Information not available 04/23/2023 How Much Tobacco Do You Smoke? 1 PPD [email or web address] Information not available 04/09/2023 Has Tobacco Cessation Counseling Been Provided? No Information not available 04/23/2023 How Many Years Have You Smoked Tobacco? 18 [email or web address] Information not available 04/23/2023 Sex: Unknown Functional Status Question Answer Note LastModified by Organizat ion Details LastModified Time Do you use any illicit or recreational drugs? No [email or web address] Information not available 04/23/2023 What is your level of alcohol consumption? None [email or web address] Information not available 04/09/2023 What is your exercise level? None [email or web address] Information not available 04/23/2023 Mental Status Question Answer Note LastModified by Organization D etails LastModified Time Do you feel stressed (tense, restless, nervous, or anxious, or unable to sleep at night)? [id number] [email or web address] Information not available 04/23/2023 Family History Relationship Description Onset Age of this Age Resolved Age Notes LastModified by Organization Details LastModified Time Father Disorder of endocrine system pt. added direct ly (04/09) [email or web address] Not available 04/09/2023 15:17:05 Father Heart disease pt. added direct ly (04/09) [email or web address] Not available 04/09/2023 15:17:05 Father Hypertensive disorder pt. added direct ly (04/09) [email or web address] Not available 04/09/2023 15:17:05 Mother Heart disease pt. added direct ly (04/09) [email or web address] Not available 04/09/2023 15:17:32 Mother Hypertensive disorder pt. added direct ly (04/09) [email or web address] Not available 04/09/2023 15:17:32 Medical History Condition Response Diabetes Y Kidney Stones Y High Cholesterol Y Heart Disease Y Kidney or Bladder Problems Y Hypertension Y Past Encounters Encounter ID Performer Location Encounter Start Date Encounter Closed Date Diagnosis/Indication Diagnosis SNOMED-CT Code Diagnosis ICD10 Code Diagnosis Note [id number] Real Hand MD Roby johnny General Surgery [address] [facility] [place] [address] 04/09/2023 15:07:41 04/09/2023 16:12:16 Abscess of skin and/or subcutaneous tissue 82485871 L02.91 left antecubita l fossa and distal medial left forearm. will plan to admit the patient and plan for emergency incision and drainage later this evening. He did eat around an hour and a half ago. Health Concerns Section Related Observation LastModified by Organization Detai ls LastModified Time None Recorded Concern Status LastModified by Organization Details LastModified Time None Recorded Advance Directives Directive N: Payers Insurance Date Sequence Insurance Name Policy Number Policy Almanzar Covered Member ID Almanzar Member ID Guarantor Name 03/06/2024 1 PASSPORT BY [employer] (MEDICAID REPLACEMENT - HMO) [id number] Trevormckenzie Ku Mike [id number] [place] Johnny Mckeon 03/06/2024 1 *SELF PAY* irontopher Johnny Mckeon Notes Date Note Type Note Provider Name and Address Organization Details Recorded Time 04/09/2023 text/html Isidro is a 47-year-old man who developed pain and swelling in his left antecubital fossa around 10 days ago. Two days ago he was seen in the emergency room and [facility] where he had an incision and drainage of a left antecubital fossa abscess. It initially got better and is still not as wide but has extended up into the distal arm. it is starting to become more painful again. He denies any fevers. He did receive IV Cleocin and was started on oral doxycycline. His cultures have grown out MRSA. Real Hand MD [address] [facility],[address], [place], [address], [facility] [place] & [place] 04/09/2023 17:08:35
--- OUTSIDE RECORDS SUMMARY | 2025-02-16 06:07 | XMS_ITS | Referral Summary ---
Author Organization [employer] ([place], [place], [place], [place]) Address [address] [place] [address] Care Team Providers Care Showroom Executive Director Name Role Phone Unavailable Primary Care Provider Unavailabl e Allergies No known active allergies Medications amoxicillin-clav ulanate (AUGMENTIN) 875-125 mg per tablet Take 1 tablet by mouth 2 (two) times daily. 20 tablet 04/09/2024 Active loratadine (CLARITIN) 10 mg tablet Take 1 tablet (10 mg total) by mouth daily. 30 tablet 04/09/2024 Active Social History Tobacco Use Types Packs/Day Years Used Date Smoking Tobacco: Every Day Cigarettes Smokeless Tobacco: Never Tobacco Cessation:Ready to Q uit: No; Counseling Given: No Alcohol Use Standard Drinks/Week Comments Never 0 (1 standard drink = 0.6 oz pur e alcohol) Food Insecurity Answer Date Recorded Food run out past 12 months Not on file 03/19 Food did not last past 12 months Not on file 04/08/2024 Employment Answer Date Recorded Help finding and keeping a job Not on file 0 04/08/2024 Family and Community Support Answer Sathya e Recorded Help with Day to Day Activities Not on file 04/08/2024 Feeling Lonely or Isolated Not on file 04/08 Educational Attainment Answer Date Ancelmo rded Speak language other than Bahamian at home Not on file 04/08/2024 Want help with school or training Not on file 04/08/2024 Substance Use Answer Date Recorded Used prescription meds for non-medical reasons N ot on file 04/08/2024 Used illegal drugs past 12 months Not on file 04/08/2024 Sex and Gender Information Value Date Recorded Sex Assigned at Not on file Legal Sex Male 7:13 PM CDT Gender Identity Not on file Sexual Orientation Not on file Last Filed Vital Signs Vital Sign Reading Time Taken Comments Blood Pressure 169/97 04/09/2024 1:06 AM EDT Pulse 96 04/09/2024 1:06 AM EDT Temperature 37.2 C (99 F) 04/08/2024 11:56 PM EDT Respiratory Rate 16 04/08/2024 11:56 PM EDT Oxygen Saturation 97% 04/09/2024 1:06 AM EDT Inhaled Oxygen Concentration - - Weight 106.6 kg (235 lb) 04/08/2024 11:56 PM EDT Height 188 cm (6' 2 ) 04/08/2024 11:56 PM EDT Body Mass Index 30.17 04/08/2024 11:56 PM EDT Plan of Treatment Not on file Insurance PASSPORT [facility]
--- OUTSIDE RECORDS SUMMARY | 2025-02-16 06:07 | XMS_ITS | Patient Health Record ---
Author Organization [facility] [place] Address [address] [place] [address] Care Team Providers Care Craft Superintendent Name Role Phone KENNETH OLIVARES Primary Care Provider Reason For Referral No Information Plan Of Treatment No Information
--- OUTSIDE RECORDS SUMMARY | 2025-02-16 06:07 | XMS_ITS | Clinical Summary ---
Author Organization [employer] ([place], [place], [place], [place]) Address [address] [place] [address] Care Team Providers Care Filing Machine Operator Name Role Phone Unavailable Primary Care Provider [...] Date Ancelmo rded Speak language other than Senegalese at home Not on file 04/08/2024 Want [...] 04/08/2024 11:56 PM EDT Plan of Treatment Health Maintenance Due Date Last Done Comments CT Colonography 1975 Colonoscopy 1975 Colorectal Cancer Screening 1975 FOBT/FIT 1975 Fit-DNA (Cologuard) 1975 Sigmoidoscopy 1975 Depression Screening (12+) 1987 Tobacco Cessation Counseling and Screening (12+) 08/09 HIV Screening 1990 Hepatitis C Screening 1993 DTAP/TDAP/TD VACCINES (1 - Tdap) 1994 Pneumococcal Vaccine: 0-49 Years (2 of 2 - PCV) 201906/10/2019 Lipid Panel 06/09/2022 06/09/2019 COVID-19 VACCINE ( - season) 2024 Influenza Vaccine (Season Ended) 2025 Insurance PASSPORT [facility]
--- OUTSIDE RECORDS SUMMARY | 2025-02-16 06:08 | XMS_ITS | Encounter Summary ---
Author Organization [facility] Address [address] [place] [address] Care Team Providers Care Account Resolution Specialist Name Role Phone Stu Zeynep RADER Primary Care Provider Encounter Details Date Type Department Care Team (Late st Contact Info) Description 02/07/2025 Telephone Radiology Virtual Dept. [address] [place] [phone] Dea Schmitt APRN, [facility] [address] [facility] [address] [place] [id number] Social History Tobacco Use Types Packs/Day Years [...] any time in the past 12 m [facility], were you homeless or living in a care home (including now)? 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
--- OUTSIDE RECORDS SUMMARY | 2025-02-16 06:08 | XMS_ITS | Clinical Summary ---
Author Organization [facility] Address [address] [place] [address] Care Team Providers Care Plugger Man Name Role Phone Zeynep Peraza APRN Primary Care Provider [phone] Allergies Active Allergy Reactions Criticality Noted Date Comments Metformin Other - please docum ent in the comment field,Unknown - Patient states they do not know rxn details Low 04/19/2015 Medications * This document contains information received from the source organization and may not represent a complete record from that organization. dulaglutide (Trulicity) 0.75 MG/0.5ML solution pen-injector inj. pen Inject 0.75 mg under the skin 1 (one) time per week. Active loratadine (Claritin) 10 MG tablet Take 1 tablet (10 mg) by mouth 1 (one) time each day if needed for allergies. Active naloxone (Narcan) 4 mg/0.1 mL nasal spray 1. Give 1 spray in nostril for no/slow breathing or cannot wake after opioid use 2. Call 911 3. Repeat in other nostril if symptoms continue Call 911. Give 4 mg (1 spray) into one nostril. Repeat every 2-3 minutes as needed, alternating nostrils, until medical assistance arrives. 1 each 4 07/02/20 25 Active Additional Information Patient not taking.Reported on 11/29/2024 Blood Glucose Monitoring Suppl device Test three times daily 1 each 4 Active glucose blood test strip Test three times daily 300 strip 11 4 Active Lancets misc Test three times daily 300 each 4 Active Alcohol Sheets (Alcoh-Wipe) sheet Use as directed. 300 each 11 4 Active pen needle, diabetic 31G X 5 MM misc Use as directed with insulin pen. 100 each 11 4 Active amLODIPine (Norvasc) 5 MG tablet Take 1 tablet (5 mg) by mouth 1 (one) time each day. 30 tablet 4 Active aspirin 81 MG EC tablet Take 1 tablet (81 mg) by mouth 1 (one) time each day. 30 tablet 4 Active atorvastatin (Lipitor) 80 MG tablet Take 1 tablet (80 mg) by mouth 1 (one) time each day. 30 tablet 4 Active ergocalciferol (Vitamin D-2) 1.25 MG (90523 UT) capsule Take 1 capsule (50,000 Units) by mouth 1 (one) time per week. 4 capsule 4 Active hydroCHLOROthiaz lgenn 12.5 MG PO tablet Take 1 tablet (12.5 mg) by mouth 1 (one) time each day. 30 tablet 4 Active insulin glargine (Lantus SoloStar) 100 UNIT/ML injection pen Inject 80 Units under the skin 2 (two) times a day. 45 mL 4 Active lisinopril 40 MG tablet Take 1 tablet (40 mg) by mouth 1 (one) time each day. 30 tablet 4 Active metoprolol succinate XL (Toprol-XL) 50 MG 24 hr tablet Take 1 tablet (50 mg) by mouth 1 (one) time each day. Do not crush or chew. 30 tablet 4 Active omeprazole (PriLOSEC) [address] capsule Take 1 capsule (40 mg) by mouth 1 (one) time each day. Do not crush or chew. 30 capsule 4 Active linaCLOtide (Linzess) 145 MCG capsuleIndicatio ns:Opioid-induce d constipation Take 1 capsule by mouth daily. 30 capsule 3 5 Active bisacodyl (Bisacodyl EC) 5 MG EC tablet Take all 4 tablets at 4 PM on day before colonoscopy 4 tablet 5 Active polyethylene glycol (GoLYTELY) 236 g solution SEE PHARMACY NOTES FOR PATIENT LABEL INSTRUCTIONS- for Colonoscopy prep protocol 4000 mL Active Active Problems Problem Noted Date Diagnosed Date Withdrawal from opioids 06/30/2024 Primary hypertension 06/30/2024 Type 2 diabetes mellitus wit h hyperglycemia, with long-term current use of insulin 06/30/2024 Hyperlipidemia 06/30/2024 Coronary artery disease invo lving [place] coronary artery of [place] heart without angina pectoris 06/30/2024 Substance abuse 06/30/2024 Cigarette nicotine dependence without complicati on 06/30/2024 Encounters Date Type Department Care Team Description 02/12/2025 11:59 PM EDT Anesthesia Event [facility] [address] [place] [address] Christian Bonilla MD 02/07/2025 Telephone Radiology Virtual Dept. [address] [place] [address] Dea Schmitt APRN, DNP 12/01/2024 Telephone [facility] [address] [place] [address] Dea Schmitt APRN, DNP 11/29/2024 12:45 PM EDT Office Visit [facility] [address] [place] [address] Dea Schmitt APRN, DNP Unspecified abdominal pain (Primary Dx); Screening for colorectal cancer; Dysphagia, unspecified type; Gastroesophageal reflux disease, unspecified whether esophagitis present; Right sided abdominal pain; Hematochezia; Melena; Opioid-induced constipation; Abnormal finding on CT scan; Vomiting, unspecified vomiting type, unspecified whether nausea present 11/29/2024 Travel from Last 3 Months Immunizations Immunization Administration Dates Next Due Pneumococcal Polysaccharide PPV23 06/10/2019 Family History Medical History Relation Name Comments Coronary artery disease Father Diabetes type II Father Hypertension Father Nephrolithiasis Father Ulcers Father Conversions - Other Mother human im munodeficiency virus infection Coronary artery disease Mother Relation Name Status Comments Father Mother Social History Tobacco Use Types Packs/Day Years [...] any time in the past 12 m [facility], were you homeless or living in a nursing home (including now)? No 07/01/2024 CAGE ASSESSMENT [...] drink first t artie in the morning ([employer]) to steady your nerves or to get [...] Sign Reading Time Taken Comments Blood Pressure 118/85 11/29/2024 1:08 PM EDT Pulse 92 11/29/2024 1:08 PM EDT Temperature 36.7 C (98.1 F) 11/29/2024 1:08 PM EDT Respiratory Rate 18 07/06/2024 11:55 AM EST Oxygen Saturation 98% 11/29/2024 1:08 PM EDT Inhaled Oxygen Concentration - - Weight 107 kg (235 lb 14.3 oz) 11/29/2024 1:08 P M EDT Height 188 cm (6' 2 ) 11/29/2024 1:08 PM EDT Body Mass Index 30.29 11/29/2024 1:08 PM EDT Plan of Treatment Health Maintenance Due Date Last Done Comments [facility]-/Child/Adol SDOH Screenings 1975 Diabetes: Dental Exam 1985 [facility]-Hepatitis B Vaccines (1 of 3 - 19+ 3-dose series) 1994 [facility]-Pneumococcal Vaccine: Pediatrics (0 to 5 Years) and At-Risk Patients (6 to 49 Years) (2 of 2 - PCV) 06/10/2020 06/10/2019 CT Colonography 2020 Colonoscopy 2020 FIT-DNA 2020 FIT 2020 FOBT 2020 Sigmoidoscopy 2020 [facility]-Colorectal Cancer Screening 2020 [id number] Vaccine (3 - season) 2024 03/02/2021, 01/11/2021 [facility]-Diabetes: Hemoglobin A1C 09/30/2024, 06/08/2019, 04/19/2015 [facility]- SDOH Screenings 12/29/2024 [facility]-Adult SDOH Screenings 12/29/2024 07/01/2024 [facility]-Influenza Vaccine (#1) 04/18/202505/20, 04/30/2022, 05/12/2021, Additional history exists [facility]-Zoster Vaccines (1 of 2) 2025 [facility]-Depression Screening 11/29/2025 11/29/2024 [facility]-DTaP,Tdap,and Td Vaccines (2 - Td or Tdap) 02/06/2027 02/06/2017 [facility]-Hepatitis A Vaccines Completed 11/12/2018, 03/19 [facility]-HIV Screening Completed 06/30/2024, 04/19/2015 [facility]-Hepatitis C Screening Completed 2023, 06/08/2019, 04/19/2015 [facility]-Obesity Intervention Completed 11/29/2024, 06/18 HPV Vaccines Aged Out No longer eligi ble based on patient's age to complete this topic [facility]-HIB Vaccines Aged Out No longer e ligible based on patient's age to complete this topic [facility]-IPV Vaccines Aged Out No longer e ligible based on patient's age to complete this topic [facility]-Rotavirus Vaccines Aged Out No lo nger eligible based on patient's age to complete this topic Procedures Procedure Name Priority Date/Time Associated Diagnosis Comments HEMOGLOBIN A1C STAT Add-on 07/01/2024 6:10 AM EST HEPATITIS C ANTIBODY - ED W/REFLEX TO HCV QUANT PCR STAT 06/30/2024 12:17 PM EST ED HIV 1/2 ANTIBODY/ANTIGEN SCREEN WITH REFLEX TO HIV I/II DIFFERENTIATION STAT 06/30/2024 12:17 PM EST from Last 3 Months or Most Recently Relevant to Health Maintenance Results * (ABNORMAL) Hemoglobin A1c (07/01/2024 6:10 AM EST) Hemoglobin A1c 12.6(H) <5.7 % 07/01/2024 11:36 AM EST [facility] Blood Venous blood specimen / Unknown Venipuncture / Unknown 07/01/2024 6:10 AM EST 07/01/2024 6:18 AM EST Narrative [facility] - 07/01/2024 11:36 AM EST HA1C Interpretive Data: Diagnosis of Diabetes: Diabetic > or = 6.5% Pre-diabetic 5.7 to 6.4% Non-diabetic < or = 5.6% Glycemic Targets for Type I and Type II Diabetics: Non- Adults <7.0% Adults <6.0% Children and Adolescents <7.5% Source: [place] [employer]. Standards of medical care in diabetes,2017. Diabetes Care.2017:40 (suppl 1):S1-S135. HbA1c assay performed by an ion-exchange chromatography method that is certified traceable to the DCCT. us Marj Reyes MD LAB BLOOD ORDERABLES Final Res ult Performing Organization Address [facility] Co de Phone Number [facility] [address] [place] [address] * ED HIV 1/2 Antibody/Antigen Screen w/Reflex to HIV 1/2 Differentiation (06/30/2024 12:17 PM EST) HIV 1 & 2 Antibody/Antigen Screen Non Reactive Non Reactive 06/30/2024 1:06 PM EST [facility] Comment:Screening for HIV 1 & 2 antibodies, and P24 antigen is NONREACTIVE. No confirmatory testing is required. Blood Venous blood specimen / Unknown Venipuncture / Unknown 06/30/2024 12:17 PM EST 06/30/2024 12:23 PM EST us Tianna Esparza MD LAB BLOOD ORDERABLES Final R esult Performing Organization Address City/[facility]/ZIP Co de Phone Number [facility] [address] [place] [address] * Hepatitis C Antibody - ED (06/30/2024 12:17 PM EST) Hepatitis C Antibody Negative Negative 06/30/2024 1:02 PM EST [facility] Blood Venous blood specimen / Unknown Venipuncture / Unknown 06/30/2024 12:17 PM EST 06/30/2024 12:23 PM EST us Tianna Esparza MD LAB BLOOD ORDERABLES Final R esult [facility] [address] [place] [address] from Last 3 Months or Most Recently Relevant to Health Maintenance Insurance [employer] [place] Advance Directives * DNR/DNI (Latest Code Status on File) Date Activated Date Inactivated Comments 06/30/2024 8:45 PM 07/06/2024 5:41 PM Patient trammell s no legal documents however he states that he has discussed with his family and he does not want any interventions done if needed. Question Answer Comments DNR determined on/before admission date? Yes Patient has decision-making capacity? Yes Care Teams Plugger Man Relationship Specialty Start Date End Date Zeynep Peraza APRN [address] [place] [id number] PCP - General 11/29/24
[2025-02-16] MEDS: 0.9 % SODIUM CHLORIDE 1000ML 2,000 ML 999 ML IV (06:11)
--- NOTE | 2025-02-16 06:13 | CT_ITS ---
FINAL REPORT TECHNIQUE: After the administration of oral and intravenous contrast, axial images were obtained through the abdomen and pelvis by computed tomography. The study was performed with techniques to keep radiation dose as low as reasonably achievable, (ALARA). Individual dose reduction techniques using automated exposure control or adjustment of mA and/or kV according to the patient's size were employed. CLINICAL HISTORY: abd pain, likely DKA FINDINGS: Abdomen: The lung bases are clear. There is mild fatty infiltration of the liver. The gallbladder is present. The spleen, pancreas, and kidneys are unremarkable. There is a 2.2 cm low-attenuation focus in the right adrenal gland, probably due to an adenoma. The aorta is normal in caliber. There is no free fluid or adenopathy. There is moderate vascular calcification of the abdominal aorta and iliac vessels. Pelvis: The appendix is not identified. The urinary bladder is unremarkable. There is no free fluid or adenopathy. There are hypertrophic changes of degenerative disc disease in the lower lumbar spine. IMPRESSION: Probable right adrenal adenoma. Reviewed, Interpreted and Dictated by Zia Eldridge MD Transcribed by Juli Bee Authenticated and [facility]
[2025-02-16] MEDS: INSULIN REGULAR, HUMAN 100 UNIT in 0.9 % SODIUM CHLORIDE 100 ML 10.1 UNIT IV (06:14)
--- NOTE | 2025-02-16 06:16 | ECG_ITS ---
APPROVED REPORT Exam: Resting ECG HR:118 bpm ECG Measurements Heart Rate 118 AXES FL 162 P 58 QRSd 100 QRS 56 QT 334 T 120 QTc 404 Conclusion SINUS TACHYCARDIA WITH OCCASIONAL VENTRICULAR PREMATURE COMPLEXES WITH OCCASIONAL SUPRAVENTRICULAR PREMATURE COMPLEXES POSSIBLE LEFT ATRIAL ENLARGEMENT [-0.1mV P-WAVE IN V1/V2] MODERATE T-WAVE ABNORMALITY, CONSIDER LATERAL ISCHEMIA [-0.1+ mV T-WAVE IN I/aVL/V5/V6] No STEMI Electronically signed by : LENORA CALDERÓN, 02/17/2025 05:53:21
[2025-02-16] MEDS: KETOROLAC 30MG/ML VIAL 15 MG IV (06:21)
[2025-02-16] MEDS: ONDANSETRON 4MG/2ML VIAL 4 MG IV (06:21)
[2025-02-16 06:22] LABS: Hematocrit 52.0 % (42.0-52.0); Immature Granulocytes % 0.4 %; Mean Corpuscular HGB Conc 36.3 g/dL (31.8-35.4); Mean Corpuscular Hemoglobin 31.8 pg (27.0-31.2); Mean Corpuscular Volume 87.4 fl (80-94); Nucleated Red Blood Cells % 0 %; Platelet Count 112 K/mm3 (142-424); Red Blood Count 5.95 M/mm3 (4.60-6.20); Red Cell Distribution Width-SD 40.0 fL; White Blood Count 7.4 K/mm3 (4.8-10.8)
[2025-02-16 06:24] LABS: Hemoglobin 18.9 g/dL (14.1-18.0)
[2025-02-16 06:29] LABS: Alanine Aminotransferase 31 U/L (12-78); Albumin Level 4.6 g/dl (3.5-5.0); Albumin/Globulin Ratio 1.6 (1.1-1.8); Alkaline Phosphatase 92 U/L (38-126); Anion Gap 16.7 mEq/L (5-15); Aspartate Amino Transferase 30 U/L (17-59); Bilirubin,Total 1.1 mg/dl (0.2-1.3); Blood Urea Nitrogen 10 mg/dl (9-20); Calcium 9.2 mg/dl (8.4-10.2); Carbon Dioxide 29 mmol/L (22.0-30.0); Chloride 87 mmol/L (98-107); Creatinine Clearance Estimated 143 mL/min (50-200); Creatinine,Serum 0.90 mg/dl (0.66-1.25); Estimated Glomerular Filt Rate 90 ml/min (>60); GFR (African American) 109 ML/MIN (>60); Globulin 2.8 g/dL (1.3-3.2); Magnesium 1.8 mg/dl (1.6-2.3); Phosphorous 3.6 mg/dl (2.5-4.5); Potassium 3.7 mmoL/L (3.5-5.1); Sodium 129 mmol/L (136-145); Total Protein,Serum 7.4 g/dl (6.3-8.2)
[2025-02-16 06:30] LABS: VBG HCO3 26.3 mmol/L (23-30); VBG PCO2 52.9 mmol/L (35-51); VBG PH 7.32 mmol/L (7.31-7.41); VBG PO2 31.8 mmol/L (28-40)
[2025-02-16 06:35] LABS: Lactate Venous 4.3 mmol/L (0.4-2.0)
--- NOTE | 2025-02-16 06:35 | PC.NURSE ---
Critical value of LA 4.3 called, M Kirkland notified.
[2025-02-16 06:38] LABS: Glucose 681 mg/dl (74-100)
--- NOTE | 2025-02-16 06:40 | ED_ITS ---
Discharge Plan Disposition Patient Disposition: Admitted Condition: Fair Prescriptions Prescriptions: No Action aspirin [Adult Low Dose Aspirin] 81 mg tablet,delayed release (DR/EC) 81 mg PO DAILY Qty: 100 2RF atorvastatin 40 MG tablet 40 mg PO HS omeprazole 40 MG capsule,delayed release(DR/EC) 40 mg PO DAILY triamterene-hydrochlorothiazid 1 EACH tablet 2 each PO DAILY lisinopril 40 MG tablet 40 mg PO DAILY insulin lispro 100 UNIT/ML insulin pen 0 unit SQ DIRECTED Rx Instructions: 60 units at breakfast, 10 units at lunch, and 60 units at dinner insulin glargine 100 UNIT/ML insulin pen 40 unit SQ HS potassium chloride 20 MEQ tablet extended release 20 meq PO BID metoprolol tartrate 50 MG tablet 50 mg PO BID Qty: 60 3RF furosemide 20 MG tablet 20 mg PO DAILY Qty: 30 3RF loratadine 10 mg tablet 10 mg PO DAILY PRN (Reason: allergies) Referrals Follow up/Referrals: Zenyep Peraza APRN [Primary Care Provider, Medical] - See instructions Clinical Impressions Clinical Impression: Hyperglycemia Instructions Patient Instructions: DI for Hyperglycemia -- Adult Print Language Print Language: Omani Discharge ED Provider: Breanna Kirkland General Adult HPI <Breanna Kirkland MD - Last Filed: 02/16/25 06:50> General Chief complaint: Hyper/Hypoglycemia Stated complaint: high glucose, abd pain, vision imparement Time Seen by Provider: 02/16/25 06:01 Mode of Arrival: Ambulatory Source of Information: Patient Description of Symptoms (Recalled from ER Triage Doc. by RN): pt presents to the ed for evaluation of high blood sugar that began approx 2-3 days ago. Pt reports to being type 2 diabetic and reports to being compliant with medications. Pt also reports abd cramps and blurred vision. History of Present Illness HPI narrative: 49-year-old male presents to the ER for concerns of high blood sugar, nausea, abdominal cramping, blurred vision. Patient reports for the last 2 weeks he has been noncompliant with his medications due to family problems . Patient reports he knows his sugar is very high. He states this morning prior to arrival he took 80 units of Lantus but that is the first time in 2 weeks that he has taken any medications. Patient has a history of CAD, stents, hypertension, hyperlipidemia, tobacco use, he also self-reports a history of abusing pain pills and states he is currently using methamphetamines for the last 5 to 6 weeks because he got mixed up with the wrong crowd . He states he snorts it and does not use any IV drugs. He reports he is very thirsty and urinating a lot. Vision blurriness was not an acute change but has been progressive. Denies numbness, tingling, or weakness in 1 part of the body. No fevers or chills. No cough, congestion, diarrhea, or other associated symptoms. Denies recent alcohol use. Patient reports no history of DKA. Related Data Home Medications ?Medication ?Instructions ?Recorded ?Confirmed atorvastatin 40 mg tablet 40 mg PO HS cholestrol 01/2602/05/19 insulin glargine 100 unit/mL (3 40 unit SQ HS Diabetes 01/26/19 02/05/19 mL) subcutaneous pen insulin lispro 100 unit/mL 0 unit SQ DIRECTED Diabe lalo 01/26/19 02/05/19 subcutaneous pen lisinopril 40 mg tablet 40 mg PO DAILY blood pressur e 01/26/19 02/05/19 omeprazole 40 mg capsule,delayed 40 mg PO DAILY GERD 0 01/26/19 02/05/19 release potassium chloride 20 mEq 20 meq PO BID POTASSIUM REPL ACEMENT 01/26/19 02/05/19 tablet,extended release triamterene 37.5 2 each PO DAILY blood pressu re 01/26/19 02/05/19 mg-hydrochlorothiazide 25 mg tablet loratadine 10 mg tablet 10 mg PO DAILY PRN allergies 02/05/19 02/05/19 Previous Rx's ?Medication ?Instructions ?Recorded furosemide 20 mg tablet 20 mg PO DAILY #30 tabs 01/16 10/06 metoprolol tartrate 50 mg tablet 50 mg PO BID #60 tabs 01/27/19 aspirin 81 mg tablet,delayed 81 mg PO DAILY #100 tabs 02/05/19 release (Adult Low Dose Aspirin) Allergies Allergy/AdvReac Type Severity Reaction Status Date / Time metformin AdvReac Gastrointestinal Verified 02/16/25 06:08 Upset [facility] <Breanna Kirkland MD - Last Filed: 02/16/25 06:50> [facility] Disclaimer: The information contained in this section may have been updated after the patient was seen, as this information can be updated by other users. Medical History (Updated 02/16/25 @ 08:38 by Jean-Paul Smith MD) History of placement of stent in LAD coronary artery Social History Smoking Status: Smoker, status unknown tobacco type: cigarettes packs per day: 1 alcohol intake: never substance use type: sedatives current occupational status: employed Travel in the last 8 weeks?: Inside the [place] Have you lived/traveled outside US in past 30 days?: No Contact w/someone who lives/traveled outside US past 30 days?: No Exposure to someone with infectious disease in past 14 days?: No Do you have a fever (greater than 100.4 F or 38 C)?: No Have you tested positive for COVID-19?: No Exposed to someone with COVID-19 in past 14 days?: No Do you have a sore throat?: No Do you have a cough?: No Do you have any weakness?: No Do you have any diarrhea?: No Are you experiencing any unusual bleeding?: No Do you have any muscle aches/pain?: No Do you have any abdominal pain?: Yes Are you experiencing loss of taste or smell?: No Other Medical History Have you received the Flu Vaccine for this season: No Have you received the Pneumonia Vaccine: Yes <Breanna Kirkland MD - Last Filed: 02/16/25 06:50> ROS Obtained: Yes Systems reviewed as appropriate & no additional complaints except as documented Per HPI Physical Exam <Breanna Kirkland MD - Last Filed: 02/16/25 06:50> General General appearance: alert and in no apparent distress Comment: Ill-appearing Head Head exam: atraumatic and normocephalic Eye Eye exam: Present PERRL and EOMI ENT ENT exam: Present mucous membranes moist Neck Neck exam: Present normal inspection and full ROM Chest Chest inspection: Present symmetric chest wall rise Respiratory Respiratory exam: Present normal lung sounds bilaterally; Absent respiratory distress, wheezes or stridor Cardiovascular Cardiovascular exam: Present normal rhythm and tachycardia Abdominal Exam Abdominal exam: Present soft and tenderness (Mild generalized, worse in the epigastric region); Absent distention, guarding, rebound or rigidity Extremities Exam Extremities exam: Present full ROM; Absent edema Neurological Exam Neurological exam: Present alert and oriented X3; Absent motor sensory deficit Psychiatric Psychiatric exam: Present normal affect and normal mood Skin Skin exam: Present warm and dry Medical Decision Making <Breanna Kirkland MD - Last Filed: 02/16/25 06:50> Medical Records Medical records reviewed: Yes I reviewed the patient's medical records. Screening: Per USPSTF and CDC recommendations, given the prevalence of disease in our region, it is our hospital?s policy to screen for HIV and viral Hepatitis for all patients aged 18 and over and those with ongoing risk factors. Cesar Inquiry Pt receiving controlled substance: No Vital Signs: 02/16/25 06:00 02/16/25 06:01 02/16/25 06:05 Temperature 98.9 F Temperature Source Oral Pulse Rate Pulse Rate [Radial] 125 H 125 H Respiratory Rate 18 18 Blood Pressure 149/100 H Blood Pressure [Right Arm] 155/108 H Blood Pressure Mean 112 Blood Pressure Mean [Right Arm] 123 Blood Pressure Position [Right Arm] Sitting 02 Sat by Pulse Oximetry 98 Oxygen Delivery Method Room Air 02/16/25 06:11 02/16/25 06:44 02/16/25 07:23 Temperature Temperature Source Pulse Rate 114 H 115 H Pulse Rate [Radial] Respiratory Rate 13 Blood Pressure 143/87 H 154/104 H 167/111 H Blood Pressure [Right Arm] Blood Pressure Mean 111 110 Blood Pressure Mean [Right Arm] Blood Pressure Position [Right Arm] 02 Sat by Pulse Oximetry 98 98 Oxygen Delivery Method Room Air 02/16/25 07:25 02/16/25 07:30 02/16/25 07:36 Temperature Temperature Source Pulse Rate 115 H 114 H 110 H Pulse Rate [Radial] Respiratory Rate Blood Pressure 152/104 H 154/98 H 171/118 H Blood Pressure [Right Arm] Blood Pressure Mean 109 130 Blood Pressure Mean [Right Arm] Blood Pressure Position [Right Arm] 02 Sat by Pulse Oximetry 98 97 97 Oxygen Delivery Method Room Air 02/16/25 07:40 02/16/25 07:45 02/16/25 07:50 Temperature Temperature Source Pulse Rate 109 H 109 H 109 H Pulse Rate [Radial] Respiratory Rate Blood Pressure 149/109 H 158/106 H 148/98 H Blood Pressure [Right Arm] Blood Pressure Mean 122 114 105 Blood Pressure Mean [Right Arm] Blood Pressure Position [Right Arm] 02 Sat by Pulse Oximetry 97 97 97 Oxygen Delivery Method 02/16/25 07:55 02/16/25 08:00 02/16/25 08:05 Temperature Temperature Source Pulse Rate 107 H 107 H 110 H Pulse Rate [Radial] Respiratory Rate Blood Pressure 158/108 H 158/106 H 162/105 H Blood Pressure [Right Arm] Blood Pressure Mean 119 118 119 Blood Pressure Mean [Right Arm] Blood Pressure Position [Right Arm] 02 Sat by Pulse Oximetry 97 97 97 Oxygen Delivery Method Lab Data Lab Results 02/16/25 06:10: WBC 7.4, RBC 5.95, Hgb 18.9 H, Hct 52.0, MCV 87.4, MCH 31.8 H, M CHC 36.3 H, RDW 12.5, Plt Count 112 L, MPV 13.4 H, Neut % (Auto) 61.8, Lymph % (Auto) 26.0, [place] % (Auto) 10.4 H, Eos % (Auto) 0.7, Baso % (Auto) 0.7, Neut # (Auto) 4.6, Lymph # (Auto) 1.9, [place] # (Auto) 0.8, Eos # (Auto) 0.1, Baso # (Auto) 0.1, Sodium 129 L, Potassium 3.7, Chloride 87 L, Carbon Dioxide 29, Anion Gap 16.7 H, BUN 10, Creatinine 0.90, Estimated Creat Clear 143, Estimated GFR 90, Est GFR ( Amer) 109, Glucose 681 H*, Calcium 9.2, Phosphorus 3.6, Magnesium 1.8, Total Bilirubin 1.1, AST 30, ALT 31, Alkaline Phosphatase 92, Total Protein 7.4, Albumin 4.6, Globulin 2.8, Albumin/Globulin Ratio 1.6, Plasma/Serum Alcohol < 10, Acetone Level None detected 02/16/25 06:28: VBG pH 7.32, VBG pCO2 52.9 H, VBG pO2 31.8, VBG HCO3 26.3, VBG Total CO2 28.0 H, VBG O2 Saturation 60.5, VBG Base Excess 0.2, VBG Lactic Acid 4.3 H 02/16/25 06:44: Urine Color Yellow, Urine Appearance Clear, Urine pH 5.5, Ur Specific [place] <= 1.005, Urine Protein Negative, Urine Glucose (UA) 3+, Urine Ketones Negative, Urine Blood Negative, Urine Nitrate Negative, Urine Bilirubin Negative, Urine Urobilinogen 1.0, Ur Leukocyte Esterase Negative, Urine RBC None, Urine WBC None, Ur Squamous Epith Cells Occasional, Urine Bacteria Trace 02/16/25 07:50: Lactate 3.4 H 02/16/25 06:10 02/16/25 06:10 Orders (Tests/Meds): ED MEDICATIONS Generic Name Dose Route Start Last Admin Trade Name Freq PRN Reason Stop Dose Admin Insulin Human Regular 100 unit 101 mls @ 10.1 mls/hr 02/16/25 06:15 02/16/25 06:14 / Sodium Chloride IV 03/18/25 06:14 10 unit/hr .Q10H STEFANO 10.1 mls/hr Protocol Administration 10 UNIT/HR Sodium Chloride 1,000 mls @ 150 mls/hr 02/16/25 08:15 Sod Chlor 0.9% 1000ml Bag IV 03/18/25 08:14 .Q6H40M STEFANO Potassium Chloride/Water 100 mls @ 100 mls/hr 02/16/25 06:47 Potassium Chloride 10meq/100ml Ivpb IV 02/16/25 08:46 Q1H STEFANO Discontinued Medications Generic Name Dose Route Start Last Admin Trade Name Freq PRN Reason Stop Dose Admin Sodium Chloride 2,000 mls @ 999 mls/hr 02/16/25 06:15 02/16/25 06:11 Sod Chlor 0.9% 1000ml Bag IV 03/18/25 06:14 999 mls/hr .Q2H1M STEFANO Administration Sodium Chloride 2,000 mls @ 999 mls/hr 02/16/25 06:15 Sod Chlor 0.9% 1000ml Bag IV 02/16/25 08:15 .Q2H1M ONE Iopamidol 155 ml 02/16/25 06:52 02/16/25 06:57 Iopamidol-370 (76%);100ml Bottle IV 02/16/25 06:53 155 ml ONCE ONE Administration Ketorolac Tromethamine 15 mg 02/16/25 06:15 02/16/25 06:21 Ketorolac 30mg/Ml Vial IV 02/16/25 06:16 15 mg ONCE ONE Administration Morphine Sulfate 4 mg 02/16/25 07:14 02/16/25 07:29 Morphine 4mg/Ml Syringe IV 02/16/25 07:15 4 mg ONCE ONE Administration Ondansetron HCl 4 mg 02/16/25 06:15 02/16/25 06:21 Ondansetron 4mg/2ml Vial IV 02/16/25 06:16 4 mg ONCE ONE Administration Sodium Chloride 10 ml 02/16/25 06:52 02/16/25 06:57 Sodium Chloride 0.9% 10ml Syr (Rad Only) IV 02/16/25 06:53 10 ml ONCE ONE Administration Sodium Chloride 50 ml 02/16/25 06:52 02/16/25 06:57 0.9 % Sodium Chloride 50 Ml Vial IV 02/16/25 06:53 50 ml ONCE ONE Administration ORDERS Category Date Time Status CT abdomen pelvis w con Stat Cat Scan 02/16/25 06:[address] angio head Stat Cat Scan 02/16/25 06:[address] angio neck Stat Cat Scan 02/16/25 06:[address] head/brain wo con Stat Cat Scan 02/16/25 06:01 Completed POCUS Point of Care (ER Only) Stat Exams 02/16/25 06:01 Completed XR chest portable Stat Exams 02/16/25 06:01 Completed Acetone, Serum (Rapid) Stat Lab 02/16/25 06:10 Completed Complete Blood Count Auto Diff Stat Lab 02/16/25 06:10 Completed Comprehensive Metabolic Panel Stat Lab 02/16/25 06:10 Completed Ethanol [Ethyl Alcohol] Stat Lab 02/16/25 06:10 Completed HIV Combo Stat Lab 02/16/25 06:10 Received Hemoglobin A1C Stat Lab 02/16/25 06:10 Received Hepatitis C Ab Qual. W/ RFX Stat Lab 02/16/25 06:10 Received Lactic Acid Stat Lab 02/16/25 07:50 Completed Magnesium Stat Lab 02/16/25 06:10 Completed Phosphorous Stat Lab 02/16/25 06:10 Completed UDS [Drug Screen,Urine] Stat Lab 02/16/25 06:44 Received Urinalysis and Microscopic Stat Lab 02/16/25 06:44 Completed Blood Culture Stat Micro 02/16/25 06:25 Received Urine Culture Stat Micro 02/16/25 06:45 Received Venous Blood Gas Stat RT 02/16/25 06:28 Completed Medical Decision Narrative: In summary, this 49-year-old male presents to the emergency department today with discerns of hyperglycemia, blurry vision, increased thirst and urination, abdominal pain with nausea. On initial evaluation patient is tachycardic but otherwise hemodynamically stable, GCS 15, afebrile, mild epigastric tenderness to palpation with no rebound or guarding, no focal neurologic deficits though patient reports blurry vision. Differential diagnosis includes but is not limited to hyperglycemia, DKA, HHS, electrolyte abnormality, intracranial lesion such as bleed, mass, stroke, though I considered these to be less likely. Also considered the possibility of bacteremia, endocarditis, pneumonia, urinary tract infection, or other infectious insult though I suspect noncompliance with medication causing diabetic crisis is the main underlying reason for patient's presentation today. Ruling out the most morbid conditions drove my assessment. Based on these concerns, I ordered serum labs, cardiac workup, CT imaging. [id number] glucose on arrival read high on the bedside glucometer. With his tachycardia and other symptoms, I am going to proceed with treatment for suspected DKA/HHS while additional labs are pending. ECG personally interpreted demonstrates sinus tachycardia, occasional PVC, rate 118, normal axis, normal OH and QTc, no STEMI. Patient received IV fluid bolus, regular insulin, he is also receiving Toradol, Zofran initially for treatment. [id number] bedside ultrasound personally performed and interpreted does not demonstrate vegetations on the valves which was my primary concern since patient has a history of drug use though he denies IV drug use, no pericardial effusion or obvious cardiac abnormality, see procedure note for details. Labs personally reviewed demonstrate no leukocytosis, patient has elevated hemoglobin at 18.9 which he has had previously, mild thrombocytopenia with platelets 112, VBG with normal pH but elevated lactic, PCO2 52.9, patient has notable hyponatremia with sodium 129, anion gap is only slightly elevated at 16.7, glucose severely elevated at 681, these findings are more consistent with HHS than DKA. Patient's potassium is 3.7 but with the administration of insulin and IV fluids he will have this repleted IV. Initial fluids ordered are not on potassium containing so runs of KCl have been added to his treatment. Additional labs pending at this time. Imaging and additional labs pending at the time of physician handoff, patient handed off to Dr. Smith for continued management and disposition though I anticipate this patient will be admitted for continued management. <Jean-Paul Smith MD - Last Filed: 02/16/25 08:38> Vital Signs: 02/16/25 06:00 02/16/25 06:01 02/16/25 06:05 Temperature 98.9 F Temperature Source Oral Pulse Rate Pulse Rate [Radial] 125 H 125 H Respiratory Rate 18 18 Blood Pressure 149/100 H Blood Pressure [Right Arm] 155/108 H Blood Pressure Mean 112 Blood Pressure Mean [Right Arm] 123 Blood Pressure Position [Right Arm] Sitting 02 Sat by Pulse Oximetry 98 Oxygen Delivery Method Room Air 02/16/25 06:11 02/16/25 06:44 02/16/25 07:23 Temperature Temperature Source Pulse Rate 114 H 115 H Pulse Rate [Radial] Respiratory Rate 13 Blood Pressure 143/87 H 154/104 H 167/111 H Blood Pressure [Right Arm] Blood Pressure Mean 111 110 Blood Pressure Mean [Right Arm] Blood Pressure Position [Right Arm] 02 Sat by Pulse Oximetry 98 98 Oxygen Delivery Method Room Air 02/16/25 07:25 02/16/25 07:30 02/16/25 07:36 Temperature Temperature Source Pulse Rate 115 H 114 H 110 H Pulse Rate [Radial] Respiratory Rate Blood Pressure 152/104 H 154/98 H 171/118 H Blood Pressure [Right Arm] Blood Pressure Mean 109 130 Blood Pressure Mean [Right Arm] Blood Pressure Position [Right Arm] 02 Sat by Pulse Oximetry 98 97 97 Oxygen Delivery Method Room Air 02/16/25 07:40 02/16/25 07:45 02/16/25 07:50 Temperature Temperature Source Pulse Rate 109 H 109 H 109 H Pulse Rate [Radial] Respiratory Rate Blood Pressure 149/109 H 158/106 H 148/98 H Blood Pressure [Right Arm] Blood Pressure Mean 122 114 105 Blood Pressure Mean [Right Arm] Blood Pressure Position [Right Arm] 02 Sat by Pulse Oximetry 97 97 97 Oxygen Delivery Method 02/16/25 07:55 02/16/25 08:00 02/16/25 08:05 Temperature Temperature Source Pulse Rate 107 H 107 H 110 H Pulse Rate [Radial] Respiratory Rate Blood Pressure 158/108 H 158/106 H 162/105 H Blood Pressure [Right Arm] Blood Pressure Mean 119 118 119 Blood Pressure Mean [Right Arm] Blood Pressure Position [Right Arm] 02 Sat by Pulse Oximetry 97 97 97 Oxygen Delivery Method Lab Data Lab Results 02/16/25 06:10: WBC 7.4, RBC 5.95, Hgb 18.9 H, Hct 52.0, MCV 87.4, MCH 31.8 H, M CHC 36.3 H, RDW 12.5, Plt Count 112 L, MPV 13.4 H, Neut % (Auto) 61.8, Lymph % (Auto) 26.0, [place] % (Auto) 10.4 H, Eos % (Auto) 0.7, Baso % (Auto) 0.7, Neut # (Auto) 4.6, Lymph # (Auto) 1.9, [place] # (Auto) 0.8, Eos # (Auto) 0.1, Baso # (Auto) 0.1, Sodium 129 L, Potassium 3.7, Chloride 87 L, Carbon Dioxide 29, Anion Gap 16.7 H, BUN 10, Creatinine 0.90, Estimated Creat Clear 143, Estimated GFR 90, Est GFR ( Amer) 109, Glucose 681 H*, Calcium 9.2, Phosphorus 3.6, Magnesium 1.8, Total Bilirubin 1.1, AST 30, ALT 31, Alkaline Phosphatase 92, Total Protein 7.4, Albumin 4.6, Globulin 2.8, Albumin/Globulin Ratio 1.6, Plasma/Serum Alcohol < 10, Acetone Level None detected 02/16/25 06:28: VBG pH 7.32, VBG pCO2 52.9 H, VBG pO2 31.8, VBG HCO3 26.3, VBG Total CO2 28.0 H, VBG O2 Saturation 60.5, VBG Base Excess 0.2, VBG Lactic Acid 4.3 H 02/16/25 06:44: Urine Color Yellow, Urine Appearance Clear, Urine pH 5.5, Ur Specific [place] <= 1.005, Urine Protein Negative, Urine Glucose (UA) 3+, Urine Ketones Negative, Urine Blood Negative, Urine Nitrate Negative, Urine Bilirubin Negative, Urine Urobilinogen 1.0, Ur Leukocyte Esterase Negative, Urine RBC None, Urine WBC None, Ur Squamous Epith Cells Occasional, Urine Bacteria Trace 02/16/25 07:50: Lactate 3.4 H Orders (Tests/Meds): ED MEDICATIONS Generic Name Dose Route Start Last Admin Trade Name Freq PRN Reason Stop Dose Admin Insulin Human Regular 100 unit 101 mls @ 10.1 mls/hr 02/16/25 06:15 02/16/25 06:14 / Sodium Chloride IV 03/18/25 06:14 10 unit/hr .Q10H STEFANO 10.1 mls/hr Protocol Administration 10 UNIT/HR Sodium Chloride 1,000 mls @ 150 mls/hr 02/16/25 08:15 Sod Chlor 0.9% 1000ml Bag IV 03/18/25 08:14 .Q6H40M STEFANO Potassium Chloride/Water 100 mls @ 100 mls/hr 02/16/25 06:47 Potassium Chloride 10meq/100ml Ivpb IV 02/16/25 08:46 Q1H STEFANO Discontinued Medications Generic Name Dose Route Start Last Admin Trade Name Freq PRN Reason Stop Dose Admin Sodium Chloride 2,000 mls @ 999 mls/hr 02/16/25 06:15 02/16/25 06:11 Sod Chlor 0.9% 1000ml Bag IV 03/18/25 06:14 999 mls/hr .Q2H1M STEFANO Administration Sodium Chloride 2,000 mls @ 999 mls/hr 02/16/25 06:15 Sod Chlor 0.9% 1000ml Bag IV 02/16/25 08:15 .Q2H1M ONE Iopamidol 155 ml 02/16/25 06:52 02/16/25 06:57 Iopamidol-370 (76%);100ml Bottle IV 02/16/25 06:53 155 ml ONCE ONE Administration Ketorolac Tromethamine 15 mg 02/16/25 06:15 02/16/25 06:21 Ketorolac 30mg/Ml Vial IV 02/16/25 06:16 15 mg ONCE ONE Administration Morphine Sulfate 4 mg 02/16/25 07:14 02/16/25 07:29 Morphine 4mg/Ml Syringe IV 02/16/25 07:15 4 mg ONCE ONE Administration Ondansetron HCl 4 mg 02/16/25 06:15 02/16/25 06:21 Ondansetron 4mg/2ml Vial IV 02/16/25 06:16 4 mg ONCE ONE Administration Sodium Chloride 10 ml 02/16/25 06:52 02/16/25 06:57 Sodium Chloride 0.9% 10ml Syr (Rad Only) IV 02/16/25 06:53 10 ml ONCE ONE Administration Sodium Chloride 50 ml 02/16/25 06:52 02/16/25 06:57 0.9 % Sodium Chloride 50 Ml Vial IV 02/16/25 06:53 50 ml ONCE ONE Administration ORDERS Category Date Time Status CT abdomen pelvis w con Stat Cat Scan 02/16/25 06:[address] angio head Stat Cat Scan 02/16/25 06:[address] angio neck Stat Cat Scan 02/16/25 06:[address] head/brain wo con Stat Cat Scan 02/16/25 06:01 Completed POCUS Point of Care (ER Only) Stat Exams 02/16/25 06:01 Completed XR chest portable Stat Exams 02/16/25 06:01 Completed Acetone, Serum (Rapid) Stat Lab 02/16/25 06:10 Completed Complete Blood Count Auto Diff Stat Lab 02/16/25 06:10 Completed Comprehensive Metabolic Panel Stat Lab 02/16/25 06:10 Completed Ethanol [Ethyl Alcohol] Stat Lab 02/16/25 06:10 Completed HIV Combo Stat Lab 02/16/25 06:10 Received Hemoglobin A1C Stat Lab 02/16/25 06:10 Received Hepatitis C Ab Qual. W/ RFX Stat Lab 02/16/25 06:10 Received Lactic Acid Stat Lab 02/16/25 07:50 Completed Magnesium Stat Lab 02/16/25 06:10 Completed Phosphorous Stat Lab 02/16/25 06:10 Completed UDS [Drug Screen,Urine] Stat Lab 02/16/25 06:44 Received Urinalysis and Microscopic Stat Lab 02/16/25 06:44 Completed Blood Culture Stat Micro 02/16/25 06:25 Received Urine Culture Stat Micro 02/16/25 06:45 Received Venous Blood Gas Stat RT 02/16/25 06:28 Completed Medical Decision Narrative: In summary, this 49-year-old male presents to the emergency department today with discerns of hyperglycemia, blurry vision, increased thirst and urination, abdominal pain with nausea. On initial evaluation patient is tachycardic but otherwise hemodynamically stable, GCS 15, afebrile, mild epigastric tenderness to palpation with no rebound or guarding, no focal neurologic deficits though patient reports blurry vision. Differential diagnosis includes but is not limited to hyperglycemia, DKA, HHS, electrolyte abnormality, intracranial lesion such as bleed, mass, stroke, though I considered these to be less likely. Also considered the possibility of bacteremia, endocarditis, pneumonia, urinary tract infection, or other infectious insult though I suspect noncompliance with medication causing diabetic crisis is the main underlying reason for patient's presentation today. Ruling out the most morbid conditions drove my assessment. Based on these concerns, I ordered serum labs, cardiac workup, CT imaging. [id number] glucose on arrival read high on the bedside glucometer. With his tachycardia and other symptoms, I am going to proceed with treatment for suspected DKA/HHS while additional labs are pending. ECG personally interpreted demonstrates sinus tachycardia, occasional PVC, rate 118, normal axis, normal OH and QTc, no STEMI. Patient received IV fluid bolus, regular insulin, he is also receiving Toradol, Zofran initially for treatment. [id number] bedside ultrasound personally performed and interpreted does not demonstrate vegetations on the valves which was my primary concern since patient has a history of drug use though he denies IV drug use, no pericardial effusion or obvious cardiac abnormality, see procedure note for details. Labs personally reviewed demonstrate no leukocytosis, patient has elevated hemoglobin at 18.9 which he has had previously, mild thrombocytopenia with platelets 112, VBG with normal pH but elevated lactic, PCO2 52.9, patient has notable hyponatremia with sodium 129, anion gap is only slightly elevated at 16.7, glucose severely elevated at 681, these findings are more consistent with HHS than DKA. Patient's potassium is 3.7 but with the administration of insulin and IV fluids he will have this repleted IV. Initial fluids ordered are not on potassium containing so runs of KCl have been added to his treatment. Additional labs pending at this time. Imaging and additional labs pending at the time of physician handoff, patient handed off to Dr. Smith for continued management and disposition though I anticipate this patient will be admitted for continued management. I Jean-Paul Smith MD took over care of this patient at 7 AM. Ultimately, his cross-sectional imaging of his head and abdomen were unrevealing for any acute processes. Given his concern for hyperosmolar hyperglycemia, felt reasonable to consult with the hospitalist Dr. Amezquita. After interactive discussion, he agrees to admit the patient to service. He recommends switching insulin drip to basal bolus regimen. Patient be transferred in hemodynamically stable condition. Procedures <Breanna Kirkland MD - Last Filed: 02/16/25 06:50> Miscellaneous Procedure Procedure Performed: Limited Cardiac Ultrasound Indication: Tachycardia, DKA versus HHS, history of IV drug use Identified cardiac views: [-Cardiac parasternal long axis] [-Cardiac parasternal short axis] [-Cardiac apical four-chamber] [-Cardiac subxiphoid] Findings: Cardiac activity present with no gross wall motion abnormality, no pericardial effusion, no right heart strain, no vegetations appreciated on the valves Impression: Cardiac activity present with no gross wall motion abnormality, no pericardial effusion, no right heart strain, no vegetations appreciated on the valves Images were saved to permanent archive The study was technically adequate CPT: 56412 This study was performed by me, and I personally interpreted all images/videos. Based on my clinical judgement, these images were adequate and did not necessitate further imaging. Critical Care <Breanna Kirkland MD - Last Filed: 02/16/25 06:50> Critical Care Time Critical Care Time: Yes Attestation: On 02/16/25, the high probability of a clinically significant, sudden or life threatening deterioration of the following system(s) required my full and direct attention, intervention and personal management. The time I documented below is in addition to time spent performing reported procedures but includes the following listed in this critical care notation. Total Time Total Critical Care Time: 35
[2025-02-16 06:50] LABS: Acetone, Serum (Rapid) None Detected (None Detect)
[2025-02-16 06:51] LABS: Microscopic, Urine URINE MICROSCOPIC (MICROSCOPIC)
[2025-02-16 06:55] LABS: Bilirubin,Urine Negative (Negative); Color,Urine YELLOW (Yellow); Glucose,Urine (UA) 3+ (Negative); Ketones,Urine Negative (Negative); Leukocyte Esterase,Urine Negative (Negative); PH,Urine 5.5 (5.0-8.5); Protein,Urine Negative (Negative); Specific Gravity, Urine <= 1.005 (1.005-1.030); Urobilinogen,Urine 1.0 EU/dl (0.2)
[2025-02-16] MEDS: 0.9 % SODIUM CHLORIDE 50 ML VIAL IV (06:57)
[2025-02-16] MEDS: IOPAMIDOL-370 (76%);100ML BOTTLE 155 ML IV (06:57)
[2025-02-16] MEDS: SODIUM CHLORIDE 0.9% 10ML SYR (RAD ONLY) 10 ML IV (06:57)
[2025-02-16] MEDS: MORPHINE 4MG/ML SYRINGE 4 MG IV ×2 (07:29→21:37)
[2025-02-16 07:31] LABS: Bacteria,Urine Trace /lpf; Squamous Epithelial Cell,Urine Occasional #/hpf (0-5)
--- NOTE | 2025-02-16 07:39 | PC.NURSE ---
FSBS says too high to read on glucometer, RN notified
--- NOTE | 2025-02-16 07:39 | PC.NURSE ---
FSBS TOO HIGH TO READ
--- NOTE | 2025-02-16 08:33 | PC.NURSE ---
Patients FSBS was 385.
--- NOTE | 2025-02-16 08:43 | PC.NURSE ---
Called warehouse receiving supervisor about a bed, states she will call back in a few minutes to get information.
--- NOTE | 2025-02-16 08:48 | EXP.HP ---
History of Present Illness *Admission Date: 02/16/25 *Reason for visit:: abdominal pain, hyperglycemia *History of present illness: Mr. Mckeon is a 49-year-old male with history of type 2 diabetes necessitating insulin. Also with history of hypertension, CAD, substance dependence, GERD. He states he has been having worsening abdominal pain for the past week and increased blood sugar for the past several days. States he did not take his insulin for the past month. He usually takes 80 units of long-acting insulin twice daily. On workup in the ER, he was found to have elevated glucose. Glucose of 714 on presentation. Anion gap 16.7. pH of 7.32 with CO2 of 52. Had some mild confusion on arrival. CT of head was negative. CT of abdomen also obtained, did not show any acute process. Patient presentation consistent with HHS. Medicine consulted to admit for further management. Admitted to the ICU, on arrival patient denies cough, congestion, diarrhea, nausea or vomiting. Denies shortness of breath. Admits that he has been using methamphetamines. States he decided to stop using his insulin because he did not like the side effects that it caused to his man romero . Afebrile. [facility] Disclaimer: The information contained in this section may have been updated after the patient was seen, as this information can be updated by other users. Medical History History of back pain Kidney stone Congestive heart failure History of placement of stent in LAD coronary artery Social History Smoking Status: Smoker, status unknown tobacco type: cigarettes packs per day: 1 alcohol intake: never substance use type: sedatives current occupational status: employed Travel in the last 8 weeks?: Inside the [place] Have you lived/traveled outside US in past 30 days?: No Contact w/someone who lives/traveled outside US past 30 days?: No Exposure to someone with infectious disease in past 14 days?: No Do you have a fever (greater than 100.4 F or 38 C)?: No Have you tested positive for COVID-19?: No Exposed to someone with COVID-19 in past 14 days?: No Do you have a sore throat?: No Do you have a cough?: No Do you have any weakness?: No Do you have any diarrhea?: No Are you experiencing any unusual bleeding?: No Do you have any muscle aches/pain?: No Do you have any abdominal pain?: Yes Are you experiencing loss of taste or smell?: No Other Medical History Have you received the Flu Vaccine for this season: No Have you received the Pneumonia Vaccine: Yes Review of Systems Review of Systems Review of systems (narrative): 14 point review of systems performed, pertinent positives and negatives as per HPI Meds Home Medications and Allergies Home Medications ?Medication ?Instructions ?Recorded ?Confirmed ?Type insulin glargine 100 unit/mL (3 80 unit SQ BID 01/26/19 02/16/25 History mL) subcutaneous pen lisinopril 40 mg tablet 40 mg PO DAILY 01/26/19 02/16/25 History omeprazole 40 mg capsule,delayed 40 mg PO DAILY 01/26/19 02/16/25 History release furosemide 20 mg tablet 20 mg PO DAILY #30 tabs 01/27/19 02/16/25 Rx aspirin 81 mg tablet,delayed 81 mg PO DAILY #100 tabs 02/05/19 02/16/25 Rx release (Adult Low Dose Aspirin) loratadine 10 mg tablet 10 mg PO DAILYP PRN allergies 02/05/19 02/16/25 History amlodipine 5 mg tablet 5 mg PO DAILY 02/16/25 02/16/25 History atorvastatin 80 mg tablet 80 mg PO HS 02/16/25 02/16/25 History buprenorphine 8 mg-naloxone 2 mg 2.5 film sublingual DAILY 02/16/25 02/16/25 History sublingual film dulaglutide 1.5 mg/0.5 mL 1.5 mg SQ WEEKLY 02/16/25 02/16/25 History subcutaneous pen injector (Trulicity) ergocalciferol (vitamin D2) 1,250 1,250 mcg PO WEEKLY 02/16/25 02/16/25 History mcg (50,000 unit) capsule (Vitamin D2) hydrochlorothiazide 12.5 mg tablet 12.5 mg PO DAILY 02/16/25 02/16/25 History linaclotide 145 mcg capsule 145 mcg PO DAILY 02/16/25 02/16/25 History (Linzess) metoprolol succinate 50 mg 50 mg PO DAILY 02/16/25 02/16/25 History tablet,extended release 24 hr New Prescriptions to Start Prescriptions: Allergies Allergy/AdvReac Type Severity Reaction Status Date / Time metformin AdvReac Gastrointestinal Verified 02/16/25 06:08 Upset Exam Data for Last 24 hours Vital signs and Labs for Last 24 Hours: Temp Pulse Resp BP Pulse Ox O2 Del Method 98.9 F 110 H 13 162/105 H 97 Room Air 02/16/25 06:00 02/16/25 08:05 02/16/25 06:44 02/16/25 08:05 02/16/25 08:05 02/16/25 07:25 Laboratory Results - last 24 hr 02/16/25 06:10: WBC 7.4, RBC 5.95, Hgb 18.9 H, Hct 52.0, MCV 87.4, MCH 31.8 H, MCHC 36.3 H, RDW 12.5, Plt Count 112 L, MPV 13.4 H, Neut % (Auto) 61.8, Lymph % (Auto) 26.0, Person % (Auto) 10.4 H, Eos % (Auto) 0.7, Baso % (Auto) 0.7, Neut # (Auto) 4.6, Lymph # (Auto) 1.9, Person # (Auto) 0.8, Eos # (Auto) 0.1, Baso # (Auto) 0.1, Sodium 129 L, Potassium 3.7, Chloride 87 L, Carbon Dioxide 29, Anion Gap 16.7 H, BUN 10, Creatinine 0.90, Estimated Creat Clear 143, Estimated GFR 90, Est GFR ( Amer) 109, Glucose 681 H*, Calcium 9.2, Phosphorus 3.6, Magnesium 1.8, Total Bilirubin 1.1, AST 30, ALT 31, Alkaline Phosphatase 92, Total Protein 7.4, Albumin 4.6, Globulin 2.8, Albumin/Globulin Ratio 1.6, Plasma/Serum Alcohol < 10, Acetone Level None detected 02/16/25 06:28: VBG pH 7.32, VBG pCO2 52.9 H, VBG pO2 31.8, VBG HCO3 26.3, VBG Total CO2 28.0 H, VBG O2 Saturation 60.5, VBG Base Excess 0.2, VBG Lactic Acid 4.3 H 02/16/25 06:44: Urine Color Yellow, Urine Appearance Clear, Urine pH 5.5, Ur Specific [place] <= 1.005, Urine Protein Negative, Urine Glucose (UA) 3+, Urine Ketones Negative, Urine Blood Negative, Urine Nitrate Negative, Urine Bilirubin Negative, Urine Urobilinogen 1.0, Ur Leukocyte Esterase Negative, Urine RBC None, Urine WBC None, Ur Squamous Epith Cells Occasional, Urine Bacteria Trace 02/16/25 07:50: Lactate 3.4 H I & O for Last 24 hours: Intake & Output 02/13/25 02/14/25 02/15/25 02/16/25 23:59 23:59 23:59 23:59 Weight 102.058 kg Constitutional Constitutional: mild distress, obese, chronically ill appearing and cooperative *Routine HEENT Exam Head: Present normocephalic Eye: Present EOMI and PERRL ENT: Present mucous membranes moist *Routine Neck Exam Neck: Present supple; Absent lymphadenopathy *Routine Respiratory Exam Respiratory: Present CTA bilaterally; Absent rhonchi or wheezes *Routine Cardiovascular Exam Cardiovascular: Present tachycardia Comments: Regular rhythm *Routine Abdominal Exam Abdominal: Present soft, normoactive bowel sounds and tenderness (Epigastric); Absent distended *Routine Rectal Exam Rectal:: deferred *Routine Genitalia Exam Genitalia:: deferred *Routine Extremities Exam Extremities: Absent cyanosis, clubbing or edema *Routine Skin Exam Skin: Present intact and warm; Absent rash *Routine Neurological Exam Neurological: Present alert, oriented X3 and moving all extremities; Absent altered mental status Assessment and Plan *Assessment and plan (1) Hyperosmolar hyperglycemic state (HHS): Status: Acute Category: Medical Code(s): E11.00 - Type 2 diabetes mellitus with hyperosmolarity without nonketotic hyperglycemic-hyperosmolar coma (NKHHC) (2) Abdominal pain: Status: Acute Category: Medical Code(s): R10.9 - Unspecified abdominal pain (3) Insulin-requiring or dependent type II diabetes mellitus: Status: Chronic Category: Medical Code(s): E11.9 - Type 2 diabetes mellitus without complications; Z79.4 - extermination supervisor (current) use of insulin (4) Tobacco user: Status: Chronic Category: Social Hx Code(s): Z72.0 - Tobacco use (5) Hyperlipidemia: Status: Chronic Qualifiers: Hyperlipidemia type: mixed hyperlipidemia Qualified Code(s): E78.2 - Mixed hyperlipidemia Category: Medical Code(s): E78.5 - Hyperlipidemia, unspecified (6) Hypertensive heart disease: Status: Chronic Qualifiers: Heart failure presence: without heart failure Qualified Code(s): I11.9 - Hypertensive heart disease without heart failure Category: Medical Code(s): I11.9 - Hypertensive heart disease without heart failure (7) Hypertension: Status: Chronic Category: Medical Code(s): I10 - Essential (primary) hypertension (8) Coronary artery disease: Status: Chronic Qualifiers: Coronary Disease-Associated Artery/Lesion type: [place] artery [place] vs. transplanted heart: [place] heart Associated angina: without angina Qualified Code(s): I25.10 - Atherosclerotic heart disease of [place] coronary artery without angina pectoris Category: Medical Code(s): I25.10 - Atherosclerotic heart disease of [place] coronary artery without angina pectoris (9) Amphetamine dependence: Status: Acute Category: Medical Code(s): F15.20 - Other stimulant dependence, uncomplicated Plan 49-year-old male who presents with hyperglycemia, nausea pain, mild confusion. Concern for HHS with severe hyperglycemia of 714 presentation. UDS positive for amphetamines. Medicine consulted for admission and further management. Discussed case with ER physician, request admission for insulin drip and further treatment to stabilize patient. I decided to admit to the ICU on insulin drip. Showing some improvement clinically by the time he arrived to the unit. Complaining of abdominal pain. Per my review of CT of abdomen, no acute process. Hemoglobin normal. Suspect component of GERD. Problems addressed as follows: HHS Type 2 diabetes managed with insulin Abdominal pain Anion gap metabolic acidosis -Presents with HHS and glucose of almost 700. Started on insulin drip. Showing some improvement. Anion gap of 16. Sodium 129. - After arrival to the floor, transitioned to basal bolus regimen. Patient normally takes 80 units glargine twice daily. Has not had it in 2 to 4 weeks. - Administer 30 units glargine once. Will give an additional 30 units this evening. - Transition to high intensity sliding scale insulin - Continue LR at 100 cc an hour - Treated with hemoglobin of 18.9, white count normal at 7.4. - CTs of head negative for mass or acute stroke per my review - A1c greater than 14 - Repeat BMP every 4 hours to monitor for closure of And improvement in electrolytes - Close monitoring of sodium and potassium. Potassium 3.0. Repeat CBC, CMP, magnesium ordered for the morning On Suboxone, continue 2-1/2 films daily Holding Lipitor due to abdominal pain Resume metoprolol succinate 50 mg daily for hypertension and history of CAD. Holding lisinopril, HCTZ, Lasix, aspirin due to normotensive state GERD/abdominal pain: Continue pantoprazole 40 mg IV nightly. Administer GI cocktail x 1. Full code Lovenox 40 mg subcu daily Diabetic diet
[2025-02-16 09:07] LABS: Anion Gap 12.0 mEq/L (5-15); Blood Urea Nitrogen 9 mg/dl (9-20); Calcium 8.3 mg/dl (8.4-10.2); Carbon Dioxide 29 mmol/L (22.0-30.0); Chloride 96 mmol/L (98-107); Creatinine Clearance Estimated 184 mL/min (50-200); Creatinine,Serum 0.70 mg/dl (0.66-1.25); Estimated Glomerular Filt Rate 120 ml/min (>60); GFR (African American) 145 ML/MIN (>60); Glucose 297 mg/dl (74-100); Sodium 134 mmol/L (136-145)
--- NOTE | 2025-02-16 09:07 | PC.NURSE ---
Report given to DENI Cornejo for room 263
[2025-02-16 09:17] LABS: Potassium 3.0 mmoL/L (3.5-5.1)
--- NOTE | 2025-02-16 09:18 | PC.NURSE ---
Critical K+ 3.0, called to RN
--- NOTE | 2025-02-16 09:29 | PC.NURSE ---
Patients FSBS is 276.
--- NOTE | 2025-02-16 09:50 | PC.NURSE ---
PT ARRIVE BY WHEELCHAIR TO THE ICU WITH ICU STAFF
[2025-02-16 10:11] LABS: POC Glucose,Bedside 213 (70-110)
[2025-02-16] MEDS: humaLOG 100 UNITS/ML 10ML VIAL (SSI) SUBCUT ×4 (10:18→21:37)
[2025-02-16] MEDS: INSULIN GLARGINE 100 UNITS/ML 3ML FLEXPEN 30 UNIT SUBCUT (10:27)
[2025-02-16] MEDS: 0.9 % SODIUM CHLORIDE 1000ML 1,000 ML 150 ML IV (10:31)
[2025-02-16 10:35] LABS: Reflex Lactic Add Lactic Reflex
--- NOTE | 2025-02-16 11:34 | [facility].PHAINT1 ---
Pharmacy Intervention Comments: MEDICATION RECONCILIATION COMPLETED ON PATIENT USING EXTERNAL FILL HISTORY FROM PHARMACY AND ANGELA REPORT. -ELICEO ROSSI, RITAD
--- NOTE | 2025-02-16 11:40 | PC.NURSE ---
Verbal orders received to discontinue NS 1000mL @ 150mL/hr. notified of patient reporting twisting abdominal pain in the umbilical region. New orders received. Refer to MAR. Continuation of care plan.
[2025-02-16] MEDS: LACTATED RINGERS 1000ML 1,000 ML 100 ML IV ×2 (11:45→17:18)
[2025-02-16 11:54] LABS: Amphetamine/Metha Screen,Urine Positive ng/ml (<1000)
[2025-02-16 11:55] LABS: Barbiturates Screen,Urine Negative ng/ml (<200); Benzodiazepines Screen,Urine Negative ng/ml (<200)
[2025-02-16 11:57] LABS: Methadone Screen,Urine Negative ng/ml (<300)
[2025-02-16 11:58] LABS: Opiate Screen,Urine Negative ng/ml (<300)
[2025-02-16 11:59] LABS: Phencyclidine Screen,Urine Negative ng/ml (<25)
[2025-02-16 12:40] LABS: Hemoglobin A1C > 14.0 % (4.0-6.0)
[2025-02-16] MEDS: KETOROLAC 30MG/ML VIAL 30 MG IV ×2 (13:05→20:08)
[2025-02-16 13:15] LABS: Anion Gap 14.3 mEq/L (5-15); Blood Urea Nitrogen 10 mg/dl (9-20); Calcium 9.3 mg/dl (8.4-10.2); Carbon Dioxide 29 mmol/L (22.0-30.0); Chloride 96 mmol/L (98-107); Creatinine Clearance Estimated 215 mL/min (50-200); Creatinine,Serum 0.60 mg/dl (0.66-1.25); Estimated Glomerular Filt Rate 143 ml/min (>60); GFR (African American) 173 ML/MIN (>60); Glucose 200 mg/dl (74-100); Lactic Acid Follow Up (RFLX 1) 2.8 mmol/L (0.7-2.1); Potassium 3.3 mmoL/L (3.5-5.1); Sodium 136 mmol/L (136-145)
[2025-02-16] MEDS: BELLADONNA ALKALOIDS 60 ML ML PO (13:57)
--- NOTE | 2025-02-16 14:27 | PC.NURSE ---
Report given to DENI Young on Medical Surgical.
--- NOTE | 2025-02-16 14:35 | PC.NURSE ---
left ICU with ICU staff
--- NOTE | 2025-02-16 14:36 | PC.NURSE ---
arrived by w/c from ICU
[2025-02-16 14:42] LABS: Hepatitis C Ab Qual. W/ RFX NEGATIVE (Negative)
[2025-02-16 15:03] LABS: Reflex Lactic (2 hrs) Add Lactic Reflex
[2025-02-16 16:43] LABS: POC Glucose,Bedside 245 (70-110)
[2025-02-16 17:13] LABS: Anion Gap 10.5 mEq/L (5-15); Blood Urea Nitrogen 11 mg/dl (9-20); Calcium 9.1 mg/dl (8.4-10.2); Carbon Dioxide 29 mmol/L (22.0-30.0); Chloride 98 mmol/L (98-107); Creatinine Clearance Estimated 215 mL/min (50-200); Creatinine,Serum 0.60 mg/dl (0.66-1.25); Estimated Glomerular Filt Rate 143 ml/min (>60); GFR (African American) 173 ML/MIN (>60); Glucose 263 mg/dl (74-100); Lactic Acid Follow up (RFLX 2) 2.0 mmol/L (0.7-2.1); Potassium 3.5 mmoL/L (3.5-5.1); Sodium 134 mmol/L (136-145)
[2025-02-16 17:26] LABS: POC Glucose,Bedside 288 (70-110)
--- NOTE | 2025-02-16 18:10 | PC.NURSE ---
pt transferred from ICU this shift. a&ox4. fsbs 288 at 1700 check. pt treated with SSI. ambulates independently in the room. LR infusing @ 100. no complaints of pain. no needs at this time. call light within reach.
[2025-02-16 21:33] LABS: POC Glucose,Bedside 180 (70-110)
[2025-02-16] MEDS: SODIUM CHLORIDE 0.9% 10ML VIAL 10 ML IV (21:37)
[2025-02-16] MEDS: PANTOPRAZOLE 40MG VIAL 40 MG IV (21:37)
[2025-02-16] MEDS: INSULIN GLARGINE 100 UNITS/ML 3ML FLEXPEN 40 UNIT SUBCUT (21:38)
[2025-02-17] VITALS: BP 137/79; PULSE 115; RESP 16; TEMP 36.7; O2SAT 99
[2025-02-17] MEDS: KETOROLAC 30MG/ML VIAL 30 MG IV (02:07)
[2025-02-17] MEDS: humaLOG 100 UNITS/ML 10ML VIAL (SSI) SUBCUT ×3 (02:33→09:42)
[2025-02-17 02:36] LABS: POC Glucose,Bedside 260 (70-110)
[2025-02-17] MEDS: LACTATED RINGERS 1000ML 1,000 ML 100 ML IV (03:50)
[2025-02-17 04:00] VITALS: BP 119/80; PULSE 104; RESP 16; TEMP 36.6; O2SAT 97; BMI 27.3
[2025-02-17 06:15] LABS: Hematocrit 43.2 % (42.0-52.0); Immature Granulocytes % 0.3 %; Mean Corpuscular HGB Conc 36.3 g/dL (31.8-35.4); Mean Corpuscular Hemoglobin 31.6 pg (27.0-31.2); Mean Corpuscular Volume 86.9 fl (80-94); Nucleated Red Blood Cells % 0 %; Platelet Count 95 K/mm3 (142-424); Red Blood Count 4.97 M/mm3 (4.60-6.20); Red Cell Distribution Width-SD 40.1 fL; White Blood Count 7.2 K/mm3 (4.8-10.8)
--- NOTE | 2025-02-17 06:23 | PC.NURSE ---
trash and linen taken out if needed, water pitcher was filled, and bedside table was cleaned 06:23
[2025-02-17 06:49] LABS: Albumin Level 3.2 g/dl (3.5-5.0); Alkaline Phosphatase 74 U/L (38-126); Aspartate Amino Transferase 28 U/L (17-59); Bilirubin,Total 0.4 mg/dl (0.2-1.3); Blood Urea Nitrogen 12 mg/dl (9-20); Chloride 101 mmol/L (98-107); Creatinine Clearance Estimated 204 mL/min (50-200); Creatinine,Serum 0.60 mg/dl (0.66-1.25); Estimated Glomerular Filt Rate 143 ml/min (>60); GFR (African American) 173 ML/MIN (>60); Magnesium 1.6 mg/dl (1.6-2.3); Phosphorous 3.3 mg/dl (2.5-4.5); Sodium 136 mmol/L (136-145)
[2025-02-17 07:01] LABS: POC Glucose,Bedside 230 (70-110)
[2025-02-17 07:18] LABS: Alanine Aminotransferase 21 U/L (12-78); Albumin/Globulin Ratio 1.5 (1.1-1.8); Anion Gap 10.0 mEq/L (5-15); Calcium 8.6 mg/dl (8.4-10.2); Carbon Dioxide 28 mmol/L (22.0-30.0); Globulin 2.2 g/dL (1.3-3.2); Glucose 242 mg/dl (74-100); Total Protein,Serum 5.4 g/dl (6.3-8.2)
[2025-02-17 07:39] LABS: Potassium 3.0 mmoL/L (3.5-5.1)
[2025-02-17 07:58] LABS: Hemoglobin 15.7 g/dL (14.1-18.0)
[2025-02-17 08:00] VITALS: BP 135/86; PULSE 105; RESP 16; TEMP 36.6; O2SAT 98
[2025-02-17] MEDS: MORPHINE 4MG/ML SYRINGE 4 MG IV (08:07)
[2025-02-17] MEDS: METOPROLOL SUCCINATE XL 50MG TABLET 50 MG PO (08:07)
[2025-02-17] MEDS: ASPIRIN EC 81MG TABLET 81 MG PO (08:07)
[2025-02-17] MEDS: BUPRENORPHINE/NALOXONE 8MG/2MG ODT 2.5 EACH SL (08:08)
[2025-02-17] MEDS: SODIUM CHLORIDE 0.9% 10ML SYR (RAD ONLY) 10 ML IV (08:14)
--- NOTE | 2025-02-17 09:16 | P.DS_ITS ---
General Admission date:: 02/16/25 Discharge date: 02/17/25 HPI HPI HPI: Mr. Mckeon is a 49-year-old male with history of type 2 diabetes necessitating insulin. Also with history of hypertension, CAD, substance dependence, GERD. He states he has been having worsening abdominal pain for the past week and increased blood sugar for the past several days. States he did not take his insulin for the past month. He usually takes 80 units of long-acting insulin twice daily. On workup in the ER, he was found to have elevated glucose. Glucose of 714 on presentation. Anion gap 16.7. pH of 7.32 with CO2 of 52. Had some mild confusion on arrival. CT of head was negative. CT of abdomen also obtained, did not show any acute process. Patient presentation consistent with HHS. Medicine consulted to admit for further management. Admitted to the ICU, on arrival patient denies cough, congestion, diarrhea, nausea or vomiting. Denies shortness of breath. Admits that he has been using methamphetamines. States he decided to stop using his insulin because he did not like the side effects that it caused to his man romero . Afebrile. Hospital Course Hospital Course Hospital Course: 49-year-old male who presents with hyperglycemia, nausea pain, mild confusion. Concern for HHS with severe hyperglycemia of 714 presentation. UDS positive for amphetamines. Medicine consulted for admission and further management. Discussed case with ER physician, request admission for insulin drip and further treatment to stabilize patient. I decided to admit to the ICU on insulin drip. Showing some improvement clinically by the time he arrived to the unit. Complaining of abdominal pain. Per my review of CT of abdomen, no acute process. Hemoglobin normal. Suspect component of GERD. HHS improved with treatment of insulin. Tolerating p.o. intake. Stable to discharge home. Problems addressed as follows: HHS Type 2 diabetes managed with insulin Abdominal pain Anion gap metabolic acidosis -Presents with HHS and glucose of almost 700. Started on insulin drip. Gap showing closure. Able to transition to basal bolus regimen. Given his significant improvement, tolerance of p.o. intake, states he has been well- managed at home on twice daily glargine. Its easy for him to remember and he has been able to maintain his A1c within an acceptable range previously. A1c on presentation greater than 14. Able to advance diet. Tolerating at discharge. White count improved with treatment of his DKA from 18-7. CTs of head were negative for mass or acute stroke. Transition to insulin glargine 50 units twice daily. Will need follow-up with PCP for further management and adjustment of dosage in the coming weeks Amphetamine abuse Chronic opiate therapy -Patient currently on Suboxone 2-1/2 films daily. Found to be amphetamine positive on his UDS. States he has been using drugs the past month and has not been compliant with his diabetes regimen. Gets his Suboxone weekly. Was supposed to go to his Suboxone clinic on day of discharge but they are not open by the time of his discharge. Prescribed 1 week of medication to get him through until his follow-up appointment next Friday. Also prescribed dose of Narcan. quality specialist consulted during admission and assisted with discussions with patient about rehab. Home regimen and fill history confirmed via [facility] Hypertension: During admission resumed metoprolol succinate 50 mg daily for hypertension and history of CAD. Held lisinopril, HCTZ, Lasix, aspirin due to normotensive . Blood pressure improving on day of discharge. Resume home medications GERD/abdominal pain: Continue pantoprazole 40 mg IV nightly. Responded to GI cocktail. Resume pantoprazole 40 mg daily. Patient concerned that he may have been exposed to an STD, had some mild dysuria. Screened for GC, chlamydia, syphilis. RPR nonreactive. GC and chl amydia pending at discharge Total time spent on discharge 32 minutes in counseling, documentation, chart review, and direct care with patient. Exam Data for Last 24 hours Vital signs and Labs for Last 24 Hours: Temp Pulse Resp BP Pulse Ox O2 Del Method 97.8 F 104 H 16 119/80 97 Room Air 02/17/25 04:00 02/17/25 04:00 02/17/25 04:00 02/17/25 04:00 02/17/25 04:00 02/17/25 08:00 Laboratory Results - last 24 hr 02/16/25 06:10: Hemoglobin A1c > 14.0 H, HCV Ab MACK w/Rflx PCR Qn Negative, HIV Ag/Ab Combo Qual Negative 02/16/25 06:44: Urine Opiates Screen Negative, Urine Methadone Screen Negative, Ur Barbituates Screen Negative, Ur Phencyclidine Scrn Negative, Ur Amphetamines Screen Positive H, U Benzodiazepines Scrn Negative, Urine Cocaine Screen Neg ative, U Marijuana (THC) Screen Negative 02/16/25 08:50: Sodium 134 L, Potassium 3.0 L, Chloride 96 L, Carbon Dioxide 29, Anion Gap 12.0, BUN 9, Creatinine 0.70 D, Estimated Creat Clear 184, Estimated GFR 120, Est GFR ([facility] Amer) 145 D, Glucose 297 H D, Calcium 8.3 L 02/16/25 10:04: POC Glucose 213 H 02/16/25 12:58: Sodium 136, Potassium 3.3 L, Chloride 96 L, Carbon Dioxide 29, Anion Gap 14.3, BUN 10, Creatinine 0.60 L, Estimated Creat Clear 215, Estimated GFR 143, Est GFR ([facility] Amer) 173, Glucose 200 H D, Lactate 2.8 H, Calcium 9.3 02/16/25 13:50: POC Glucose 245 H 02/16/25 16:49: Sodium 134 L, Potassium 3.5, Chloride 98, Carbon Dioxide 29, Anion Gap 10.5, BUN 11, Creatinine 0.60 L, Estimated Creat Clear 215, Estimated GFR 143, Est GFR ([facility] Amer) 173, Glucose 263 H D, Lactate 2.0, Calcium 9.1 02/16/25 17:17: POC Glucose 288 H 02/16/25 21:27: POC Glucose 180 H 02/17/25 02:06: POC Glucose 260 H 02/17/25 05:52: POC Glucose 230 H 02/17/25 05:54: WBC 7.2, RBC 4.97, Hgb 15.7 D, Hct 43.2, MCV 86.9, MCH 31.6 H, MCHC 36.3 H, RDW 12.6, Plt Count 95 L, MPV 13.4 H, Neut % (Auto) 54.1, Lymph % (Auto) 35.6, [place] % (Auto) 8.3, Eos % (Auto) 1.3, Baso % (Auto) 0.4, Neut # (Auto) 3.9, Lymph # (Auto) 2.6, [place] # (Auto) 0.6, Eos # (Auto) 0.1, Baso # (Auto) 0.0, Sodium 136, Potassium 3.0 L, Chloride 101, Carbon Dioxide 28, Anion Gap 10.0, BUN 12, Creatinine 0.60 L, Estimated Creat Clear 204, Estimated GFR 143, Est GFR ( Amer) 173, Glucose 242 H, Calcium 8.6, Phosphorus 3.3, Magnesium 1.6 D, Total Bilirubin 0.4, AST 28, ALT 21 D, Alkaline Phosphatase 74, Total Protein 5.4 L D, Albumin 3.2 L D, Globulin 2.2, Albumin/Globulin Ratio 1.5 I & O for Last 24 hours: Intake & Output 02/14/25 02/15/25 02/16/25 02/17/25 23:59 23:59 23:59 23:59 Intake Total 1222 / 1222 1442 / 1442 Output Total 950 / 950 0 / 0 Balance 272 / 272 1442 / 1442 Weight 102.058 kg 96.615 kg Microbiology Reports for the Last 24 Hours: Microbiology 02/16/25 06:25 Blood Blood Culture - Preliminary NO GROWTH AFTER 24 HOURS 02/16/25 06:10 Blood Blood Culture - Preliminary NO GROWTH AFTER 24 HOURS Constitutional Constitutional: no acute distress, average body habitus, chronically ill appearing and cooperative *Routine HEENT Exam Head: Present normocephalic Eye: Present EOMI and PERRL ENT: Present mucous membranes moist Comments: Poor dentition *Routine Neck Exam Neck: Present supple; Absent lymphadenopathy *Routine Respiratory Exam Respiratory: Present CTA bilaterally; Absent rhonchi or wheezes *Routine Cardiovascular Exam Cardiovascular: Present RRR *Routine Abdominal Exam Abdominal: Present soft, normoactive bowel sounds and tenderness (Mild epigastric) *Routine Rectal Exam Patient deferred: visual exam *Routine Exam Patient deferred: penile exam *Routine Extremities Exam Extremities: Absent cyanosis, clubbing or edema *Routine Skin Exam Skin: Present intact and warm; Absent rash *Routine Neurological Exam Neurological: Present alert, oriented X3 and moving all extremities; Absent altered mental status Results Data Completed and Pending Labs on day of discharge: Labs from last 24 hours 02/17/25 02/17/25 02/17/25 05:54 05:52 02:06 WBC 7.2 RBC 4.97 Hgb 15.7 D Hct 43.2 MCV 86.9 MCH 31.6 H MCHC 36.3 H RDW 12.6 Plt Count 95 L MPV 13.4 H Neut % (Auto) 54.1 Lymph % (Auto) 35.6 [place] % (Auto) 8.3 Eos % (Auto) 1.3 Baso % (Auto) 0.4 Neut # (Auto) 3.9 Lymph # (Auto) 2.6 [place] # (Auto) 0.6 Eos # (Auto) 0.1 Baso # (Auto) 0.0 Sodium 136 Potassium 3.0 L Chloride 101 Carbon Dioxide 28 Anion Gap 10.0 BUN 12 Creatinine 0.60 L Estimated Creat Clear 204 Estimated GFR 143 Est GFR ( Amer) 173 Glucose 242 H POC Glucose 230 H 260 H Hemoglobin A1c Lactate Calcium 8.6 Phosphorus 3.3 Magnesium 1.6 D Total Bilirubin 0.4 AST 28 ALT 21 D Alkaline Phosphatase 74 Total Protein 5.4 L D Albumin 3.2 L D Globulin 2.2 Albumin/Globulin Ratio 1.5 Urine Opiates Screen Urine Methadone Screen Ur Barbituates Screen Ur Phencyclidine Scrn Ur Amphetamines Screen U Benzodiazepines Scrn Urine Cocaine Screen U Marijuana (THC) Screen HCV Ab MACK w/Rflx PCR Qn HIV Ag/Ab Combo Qual 02/16/25 02/16/25 02/16/25 21:27 17:17 16:49 WBC RBC Hgb Hct MCV MCH MCHC RDW Plt Count MPV Neut % (Auto) Lymph % (Auto) [place] % (Auto) Eos % (Auto) Baso % (Auto) Neut # (Auto) Lymph # (Auto) [place] # (Auto) Eos # (Auto) Baso # (Auto) Sodium 134 L Potassium 3.5 Chloride 98 Carbon Dioxide 29 Anion Gap 10.5 BUN 11 Creatinine 0.60 L Estimated Creat Clear 215 Estimated GFR 143 Est GFR ( Amer) 173 Glucose 263 H D POC Glucose 180 H 288 H Hemoglobin A1c Lactate 2.0 Calcium 9.1 Phosphorus Magnesium Total Bilirubin AST ALT Alkaline Phosphatase Total Protein Albumin Globulin Albumin/Globulin Ratio Urine Opiates Screen Urine Methadone Screen Ur Barbituates Screen Ur Phencyclidine Scrn Ur Amphetamines Screen U Benzodiazepines Scrn Urine Cocaine Screen U Marijuana (THC) Screen HCV Ab MACK w/Rflx PCR Qn HIV Ag/Ab Combo Qual 02/16/25 02/16/25 02/16/25 13:50 12:58 10:04 WBC RBC Hgb Hct MCV MCH MCHC RDW Plt Count MPV Neut % (Auto) Lymph % (Auto) [place] % (Auto) Eos % (Auto) Baso % (Auto) Neut # (Auto) Lymph # (Auto) [place] # (Auto) Eos # (Auto) Baso # (Auto) Sodium 136 Potassium 3.3 L Chloride 96 L Carbon Dioxide 29 Anion Gap 14.3 BUN 10 Creatinine 0.60 L Estimated Creat Clear 215 Estimated GFR 143 Est GFR ( Amer) 173 Glucose 200 H D POC Glucose 245 H 213 H Hemoglobin A1c Lactate 2.8 H Calcium 9.3 Phosphorus Magnesium Total Bilirubin AST ALT Alkaline Phosphatase Total Protein Albumin Globulin Albumin/Globulin Ratio Urine Opiates Screen Urine Methadone Screen Ur Barbituates Screen Ur Phencyclidine Scrn Ur Amphetamines Screen U Benzodiazepines Scrn Urine Cocaine Screen U Marijuana (THC) Screen HCV Ab MACK w/Rflx PCR Qn HIV Ag/Ab Combo Qual 02/16/25 02/16/25 02/16/25 08:50 06:44 06:10 WBC RBC Hgb Hct MCV MCH MCHC RDW Plt Count MPV Neut % (Auto) Lymph % (Auto) [place] % (Auto) Eos % (Auto) Baso % (Auto) Neut # (Auto) Lymph # (Auto) [place] # (Auto) Eos # (Auto) Baso # (Auto) Sodium 134 L Potassium 3.0 L Chloride 96 L Carbon Dioxide 29 Anion Gap 12.0 BUN 9 Creatinine 0.70 D Estimated Creat Clear 184 Estimated GFR 120 Est GFR ( Amer) 145 D Glucose 297 H D POC Glucose Hemoglobin A1c > 14.0 H Lactate Calcium 8.3 L Phosphorus Magnesium Total Bilirubin AST ALT Alkaline Phosphatase Total Protein Albumin Globulin Albumin/Globulin Ratio Urine Opiates Screen Negative Urine Methadone Screen Negative Ur Barbituates Screen Negative Ur Phencyclidine Scrn Negative Ur Amphetamines Screen Positive H U Benzodiazepines Scrn Negative Urine Cocaine Screen Negative U Marijuana (THC) Screen Negative HCV Ab MACK w/Rflx PCR Qn Negative HIV Ag/Ab Combo Qual Negative Preliminary micro results at discharge 02/16/25 06:25 Blood Culture - Preliminary Blood NO GROWTH AFTER 24 HOURS 02/16/25 06:10 Blood Culture - Preliminary Blood NO GROWTH AFTER 24 HOURS DS: Diagnosis Discharge Diagnosis (1) Hyperosmolar hyperglycemic state (HHS): Status: Acute Code(s): E11.00 - Type 2 diabetes mellitus with hyperosmolarity without nonketotic hyperglycemic-hyperosmolar coma (N[facility]) (2) Abdominal pain: Status: Acute Code(s): R10.9 - Unspecified abdominal pain (3) Insulin-requiring or dependent type II diabetes mellitus: Status: Chronic Code(s): E11.9 - Type 2 diabetes mellitus without complications; Z79.4 - FDC (cu rrent) use of insulin (4) Tobacco user: Status: Chronic Code(s): Z72.0 - Tobacco use (5) Hyperlipidemia: Status: Chronic Code(s): E78.5 - Hyperlipidemia, unspecified Qualifiers: Hyperlipidemia type: mixed hyperlipidemia Qualified Code(s): E78.2 - Mixed hyperlipidemia (6) Hypertensive heart disease: Status: Chronic Code(s): I11.9 - Hypertensive heart disease without heart failure Qualifiers: Heart failure presence: without heart failure Qualified Code(s): I11.9 - Hypertensive heart disease without heart failure (7) Hypertension: Status: Chronic Code(s): I10 - Essential (primary) hypertension (8) Coronary artery disease: Status: Chronic Code(s): I25.10 - Atherosclerotic heart disease of [place] coronary artery without angina pectoris Qualifiers: Associated angina: without angina Coronary Disease-Associated Artery/Lesion type: [place] artery [place] vs. transplanted heart: [place] heart Qualified Code(s): I25.10 - Atherosclerotic heart disease of [place] coronary artery without angina pectoris (9) Amphetamine dependence: Status: Acute Code(s): F15.20 - Other stimulant dependence, uncomplicated Meds Home Medications and Allergies Home Medications ?Medication ?Instructions ?Recorded ?Confirmed ?Type lisinopril 40 mg tablet 40 mg PO DAILY 01/26/1910/12 History furosemide 20 mg tablet 20 mg PO DAILY #30 tabs 01/1602/16/25 Rx aspirin 81 mg tablet,delayed 81 mg PO DAILY #100 tabs 02/05/19 02/16/25 Rx release (Adult Low Dose Aspirin) loratadine 10 mg tablet 10 mg PO DAILYP PRN allergie s 02/05/19 02/16/25 History amlodipine 5 mg tablet 5 mg PO DAILY 02/16/2502/16 History atorvastatin 80 mg tablet 80 mg PO HS 02/16/25 5 History dulaglutide 1.5 mg/0.5 mL 1.5 mg SQ WEEKLY 02/16/25 History subcutaneous pen injector (Trulicity) ergocalciferol (vitamin D2) 1,250 1,250 mcg PO WEEKLY 02/16/25 02/16/25 History mcg (50,000 unit) capsule (Vitamin D2) hydrochlorothiazide 12.5 mg tablet 12.5 mg PO DAILY 02/16/25 History linaclotide 145 mcg capsule 145 mcg PO DAILY 02/16/25 02/16/25 History (Linzess) metoprolol succinate 50 mg 50 mg PO DAILY 02/16/2510/12 History tablet,extended release 24 hr buprenorphine 8 mg-naloxone 2 mg 2.5 film sublingual D AILY 7 days 02/17/25 Rx sublingual film #18 ea insulin glargine 100 unit/mL (3 50 unit (0.5 mL) SQ BI D 30 days #0 02/17/25 02/16/25 Rx mL) subcutaneous pen mL naloxone 4 mg/actuation nasal 4 mg intranasal Q3M PRN opioid 02/17/25 Rx spray (Narcan) overdose #2 ea pantoprazole 40 mg tablet,delayed 40 mg PO DAILY #30 t abs 02/17/25 Rx release New Prescriptions to Start Prescriptions: buprenorphine-naloxone Elijah Amezquita naloxone [Narcan] Elijah Amezquita pantoprazole Elijah Amezquita Allergies Allergy/AdvReac Type Severity Reaction Status Date / Time metformin AdvReac Gastrointestinal Verified 02/16/25 06:08 Upset Discharge Plan Disposition Patient Disposition: Home, Self-Care Condition: Fair Follow up Plan Follow up with: Tremaine Solis II, MD [Staff Physician, Gastroenterology] - 03/17/25 2:30 pm Referral Note: GERD/Needs EGD and c-scope Zeynep Peraza APRN [Primary Care Provider, Medical] - 02/28/25 11:30 am Prescriptions/Medication Reconciliation: New pantoprazole 40 mg tablet,delayed release (DR/EC) 40 mg PO DAILY Qty: 30 0RF naloxone [Narcan] 4 mg/actuation spray,non-aerosol 4 mg intranasal Q3M PRN (Reason: opioid overdose) Qty: 2 0RF Rx Instructions: spray 1 dose into ONE nostril; alternate nostrils w each dose until help arrives Continued aspirin [Adult Low Dose Aspirin] 81 mg tablet,delayed release (DR/EC) 81 mg PO DAILY Qty: 100 2RF lisinopril 40 MG tablet 40 mg PO DAILY furosemide 20 MG tablet 20 mg PO DAILY Qty: 30 3RF loratadine 10 mg tablet 10 mg PO DAILYP PRN (Reason: allergies) amlodipine 5 mg tablet 5 mg PO DAILY Patient Comments: TAKE ONE TABLET BY MOUTH EVERY DAY metoprolol succinate 50 mg tablet extended release 24 hr 50 mg PO DAILY Patient Comments: TAKE ONE TABLET BY MOUTH EVERY DAY hydrochlorothiazide 12.5 mg tablet 12.5 mg PO DAILY Patient Comments: TAKE ONE TABLET BY MOUTH EVERY DAY Linzess 145 mcg capsule 145 mcg PO DAILY Patient Comments: TAKE ONE CAPSULE BY MOUTH DAILY ergocalciferol (vitamin D2) [Vitamin D2] 1,250 mcg (50,000 unit) capsule 1,250 mcg PO WEEKLY Patient Comments: TAKE ONE CAPSULE BY MOUTH once a week atorvastatin 80 mg tablet 80 mg PO HS Patient Comments: TAKE ONE TABLET BY MOUTH AT BEDTIME Trulicity 1.5 mg/0.5 mL pen injector 1.5 mg SQ WEEKLY Patient Comments: inject 1.5mg under the skin every 7 days buprenorphine-naloxone 8-2 mg film 2.5 film sublingual DAILY 7 Days Qty: 18 0RF Changed insulin glargine 100 UNIT/ML insulin pen 50 unit SQ BID 30 Days Qty: 0 0RF Discontinued omeprazole 40 MG capsule,delayed release(DR/EC) 40 mg PO DAILY Problem Reconciliation Problems Reviewed?: Yes Patient Discharge Instructions ACTIVITY: Continue current activity DIET: continue same diet Stand Alone Forms: [facility] Work Release Print Language: Upper Sorbian Providers Primary Care Provider: Zeynep Peraza Admit Provider: Elijah Amezquita Attending Provider: Elijah Amezquita
[2025-02-17] MEDS: POTASSIUM CHLORIDE 20MEQ TAB 40 MEQ PO ×2 (09:42→12:54)
[2025-02-17] MEDS: MAGNESIUM SULFATE IN WATER 2 GM/50 ML PIGGYBACK IV ×2 (09:42→10:26)
[2025-02-17 10:44] LABS: POC Glucose,Bedside 319 (70-110)
[2025-02-17 11:19] LABS: RPR W/RFX Titers Nonreactive (Nonreactive)
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
== END 2025-02-17 16:09 | disposition home or self-care (01) ==
LOC: ER 08:38 → ICU 08:59 → 2ND 14:17
PROVIDERS: Admitting Provider Internal Medicine Adolescent Medicine; Emergency Provider Emergency Medicine; PCP Nurse Practitioner; Visit Provider Internal Medicine Adolescent Medicine
DX: E11.00 Type 2 diabetes mellitus with hyperosmolarity without nonketotic hyperglycemic-hyperosmolar coma (NKHHC) (principal); E11.65 Type 2 diabetes mellitus with hyperglycemia; E78.2 Mixed hyperlipidemia; K21.9 Gastro-esophageal reflux disease without esophagitis; I11.0 Hypertensive heart disease with heart failure; I50.9 Heart failure, unspecified; I25.10 Atherosclerotic heart disease of native coronary artery without angina pectoris; E66.9 Obesity, unspecified; F17.210 Nicotine dependence, cigarettes, uncomplicated; R30.0 Dysuria; F15.20 Other stimulant dependence, uncomplicated; E87.20 Acidosis, unspecified; R00.0 Tachycardia, unspecified; Z95.5 Presence of coronary angioplasty implant and graft; Z68.27 Body mass index [BMI] 27.0-27.9, adult; Z88.8 Allergy status to other drugs, medicaments and biological substances; Z79.82 Long term (current) use of aspirin; Z79.899 Other long term (current) drug therapy; Z79.85 Long-term (current) use of injectable non-insulin antidiabetic drugs; Z79.4 Long term (current) use of insulin
CPT/HCPCS: 96361 ×2; 96365; 96366; 96367; 96375; 96376 ×2; 36415; 70450; 70496; 70498; 71045; 74177; 80048; 80053; 80307; 80320; 81001; 82009; 82803; 82962; 83036; 83605; 83735; 84100; 85025; 86592; 86803; 87040; 87086; 87389; 87491; 87591; 87661; 93005; G0378; J0574; J1885; J2270; J2405; J2470; J3475; J3480; J7030; J7120; Q9967